=== PATIENT | female | born 1955 | race Caucasian/White ===

== ENCOUNTER 2021-09-25 12:34 | Outpatient (CLI) | payer MEDICARE, MEDICAID, SELFPAY ==
--- NOTE | ~2021-09-25 | US_ITS ---
EXAMINATION: US thyroid EXAM DATE: 09/25/2021 13:34 INDICATION: Graves Disease. TECHNIQUE: Multiple grayscale and Doppler images of the thyroid were obtained (by a technologist who performed the scan) and subsequently reviewed. Individual nodules and recommendations may be reporte d in accordance with TI-RADS system as designated by the 2017 ACR White Paper TI-RADS committee. The re is no prior study for comparison. FINDINGS: The left thyroid lobe measures 4.5 x 2.2 x 2.0 cm, mildly enlarged. Mildly heterogeneous and diffusel y hypervascular parenchyma. The right thyroidectomy bed is unremarkable, no focal masses or internal jugular chain lymphadenopathy. Thyroid Isthmus measures 1 cm in thickness. IMPRESSION: Enlarged hypervascular left thyroid lobe. Reviewed, dictated and finalized at location B. OPERATOR
== END 2021-09-25 12:35 | disposition home or self-care (01) ==
LOC: CHSIMG 12:41
PROVIDERS: PCP Family Medicine
DX: E05.90 Thyrotoxicosis, unspecified without thyrotoxic crisis or storm (principal)
CPT/HCPCS: 76536

== ENCOUNTER 2024-02-03 12:00 | Outpatient (CLI) | payer MEDICARE, MEDICAID, SELFPAY ==
--- NOTE | ~2024-02-03 | US_ITS ---
US thyroid INDICATION: Follow-up thyroid cancer TECHNIQUE: Real-time sonographic images of the thyroid gland were obtained. COMPARISON: Ultrasound dated 09/25/2021 FINDINGS: The right thyroid lobe is surgically absent. There are multiple small left thyroid nodules, largest measuring 4 mm which is solid, hypoechoic, wider than tall with smooth margins and no international first officer al echogenic foci, TR 4. IMPRESSION: 1. Multiple small left thyroid nodules, likely benign. Status post right thyroidectomy. Reviewed, dictated and finalized at location L. IMPRESSION: 1. Multiple small left thyroid nodules, likely benign. Status post right thyro idectomy.
== END 2024-02-03 12:01 | disposition home or self-care (01) ==
LOC: CHSIMG 12:05
PROVIDERS: PCP Family Medicine
DX: C73 Malignant neoplasm of thyroid gland (principal); E04.2 Nontoxic multinodular goiter; Z98.890 Other specified postprocedural states
CPT/HCPCS: 76536

== ENCOUNTER 2025-01-21 12:27 | Outpatient (CLI) | payer MEDICARE, MEDICAID, SELFPAY ==
--- NOTE | ~2025-01-21 | US_ITS ---
EXAMINATION: US thyroid DATE: 01/21/2025 12:53 INDICATION: Malignant neoplasm of thyroid gland. TECHNIQUE: Multiple ultrasound images of the thyroid were obtained. 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 The left thyroid lobe measures 3.3 x 1.4 x 2.0 cm. There is hetero geneous echogenicity in the left thyroid lobe. No discrete nodule. Vascularity is normal. IMPRESSION: 1. Right hemithyroidectomy. Reviewed, dictated and finalized at location L. IMPRESSION: 1. Right hemithyroidectomy.
--- OUTSIDE RECORDS SUMMARY | 2025-01-21 12:38 | XMS_ITS | Encounter Summary ---
Author Organization [facility] Healthcare Address [address] [place] [address] Care Team Providers Care Clod Puller Name Role Phone Joshua Law MD Primary Care Provider [phone] UAnuj esteban MD Unavailable [phone] Joshua Law MD Primary Care Provider [phone] UAnuj esteban MD Unavailable [phone] Encounter Details Date Type Department Care Team (Late st Contact Info) Description 08/16/2022 Telephone [facility] Physical Medicine and Rehabilitation [id number] [place] [address] Martha Couch, HVAC SERVICE TECHNICIAN Social History Tobacco Use Types Packs/Day Years Used Date Smoking Tobacco: Former Cigarettes Smokeless Tobacco: Never Alcohol Use Standard Drinks/Week Comments Yes 0 (1 standard drink = 0.6 oz pur e alcohol) social - 1-2/month Humiliation, Afraid, Rape, and Kick questionnair e Answer Date Recorded Within the last year, have y ou been afraid of your partner or ex-partner? No 08/19/2022 Within the last year, have y ou been humiliated or emotionally abused in other ways by your partner or ex-partner? No Within the last year, have y ou been kicked, hit, slapped, or otherwise physically hurt by your partner or ex-partner? No 08/19/2022 Within the last year, have y ou been raped or forced to have any kind of sexual activity by your partner or ex-partner? No 08/19/2022 AUDIT-C Answer Date Recorded Q1: How often do you have a drink containing alc ohol? Monthly or less 08/19/2022 Q2: How many drinks containi ng alcohol do you have on a typical day when you are drinking? 1 or 2 08/19/2022 Q3: How often do you have si x or more drinks on one occasion? Never 08/19/2022 Overall Financial Resource Strain (CARDIA) Answe r Date Recorded How hard is it for you to pa y for the very basics like food, housing, medical care, and heating? Not very hard 08/19/2022 PHQ-2 Answer Date Recorded PHQ-2 Total Score (If total score is 3 or more points, staff should administer the PHQ-9) 0 08/19/2022 [facility] [place] [facility] Occup[facility] ional [facility] - Occupational Stress Questionnaire Answer Date Recorded Do you feel stress - tense, restless, nervous, or anxious, or unable to sleep at night because your mind is troubled all the time - these days? Not at all 08/19/2022 Hunger Vital Sign Answer Date Recorded Within the past 12 months, y ou worried that your food would run out before you got the money to buy more. Never true 08/19/20 22 Within the past 12 months, t he food you bought just didn't last and you didn't have money to get more. Never true 08/19/2022 PRAPARE - Transportation Answer Date Re corded In the past 12 months, has l ack of transportation kept you from medical appointments or from getting medications? No 08/10 In the past 12 months, has l ack of transportation kept you from meetings, work, or from getting things needed for daily living? No 08/19/2022 Housing Stability Vital Sign Answer Terry e Recorded In the last 12 months, was t here a time when you were not able to pay the mortgage or rent on time? No 08/19/2022 In the last 12 months, how many places have you lived? 1 08/19/2022 In the last 12 months, was t here a time when you did not have a steady place to sleep or slept in a care home (including now)? No 08/19/2022 Comments No Sex and Gender Information Value Date Recorded Sex Assigned at Not on file Legal Sex Female 9:11 AM REMEDIATION CONSULTANT Gender Identity Not on file Sexual Orientation Not on file documented as of this encounter Last Filed Vital Signs Vital Sign Reading Time Taken Comments Blood Pressure - - Pulse - - Temperature - - Respiratory Rate - - Oxygen Saturation - - Inhaled Oxygen Concentration - - Weight 61.7 kg (136 lb) 08/16/2022 10:54 AM CDT Height 160 cm (5' 3 ) 08/16/2022 10:54 AM CDT Body Mass Index 24.09 08/16/2022 10:54 AM CDT documented in this encounter Functional Status * Audit-C Score Answer Date of Assessment Author 1 08/19/2022 10:16 AM Sandi Gillespie MSW * Intimate Partner Violence Question Answer Date of Assessment Author Within the last year, have y ou been humiliated or emotionally abused in other ways by your partner or ex-partner? No 08/19/2022 10:16 AM Natalie Gillespie MSW Within the last year, have y ou been afraid of your partner or ex-partner? No 08/19/2022 10:16 AM Tanesha Gillespie MSW Within the last year, have y ou been raped or forced to have any kind of sexual activity by your partner or ex-partner? No 08/19/2022 10:16 AM Sandi Gillespie MSW Within the last year, have y ou been kicked, hit, slapped, or otherwise physically hurt by your partner or ex-partner? No 08/19/2022 10:16 AM Sandi Gillespie MSW * Question Answer Date of Assessment Author Q1: How often do you have a drink containing alcohol? Monthly or less 08/19/2022 10:16 AM Tanesha Gillespie MSW Q2: How many drinks containing alcohol do you have on a typical day when you are drinking? 1 or 2 08/19/2022 10:16 AM Tanesha Gillespie MSW Q3: How often do you have six or more drinks on one occasion? Never 08/19/2022 10:16 AM Tanesha Gillespie, CELL LINER * Over the past 2 weeks, how often have you been bothered by any of the following problems? Question Answer Date of Assessment Author Patient Health Questionnaire -2 Score 0 08/19/2022 10:13 AM Tanesha Gillespie, CELL LINER * Over the past 2 weeks, how often have you been bothered by any of the following problems? Question Answer Date of Assessment Author Little interest or pleasure in doing things Not at all 08/19/2022 10:13 AM Tanesha Gillespie, CELL LINER Feeling down, depressed, or hopeless Not at all 08/19/2022 10:13 AM Tanesha Gillespie, CELL LINER Trouble falling or staying asleep, or sleeping too much Not at all 08/19/2022 10:13 AM Tanesha Gillespie, CELL LINER Feeling tired or having little energy Not at all 08/19/2022 10:13 AM Tanesha Gillespie, CELL LINER Poor appetite or overeating Not at all 08/19/2022 10 :13 AM Tanesha Gillespie, CELL LINER Feeling bad about yourself - or that you are a failure or have let yourself or your family down Not at all 08/19/2022 10:13 AM Tanesha Gillespie, CELL LINER Trouble concentrating on things, such as reading the newspaper or watching television Not at all 08/19/2022 10:13 AM Tanesha Gillespie, CELL LINER Moving or speaking so slowly that other people could have noticed? Or the opposite - being so fidgety or restless that you have been moving around a lot more than usual. Not at all 08/19/2022 10:13 AM Tanesha Gillespie MSW Thoughts that you would be better off or hurting yourself in some way Not at all 08/19/2022 10:13 AM Tanesha Gillespie, CELL LINER Patient Health Questionnaire-9 Score 0 08/19/2022 10:13 AM Tanesha Gillespie MSW documented as of this encounter Miscellaneous Notes * Pre-Admission Screening - Martha Couch SLP - 08/16/2022 11:04 AM CDT [facility] Physical Medicine and Rehabilitation Preadmission Screening Reason for Consult: Lisa Ellington is a 66 y.o. female with a medical diagnosis of Leukemia and Rehab Diagnosis: New onset Leukemia - debility; deconditioning whose probable impairment code for inpatient rehabilitation is: Impairment Code Group: Debility The following information was gathered for consideration and maintenance in the medical record to substantiate medical necessity for IRF level of care. Patient is currently at [facility] . The patient is being referred and recommended by Dr. Grubbs to be assessed both medically and functionally in regard to their premorbid functional capacity to determine whether they can benefit from a rehabilitation level of care offered by our facility. The following information is regarding the medical complexity and clinical risk factors that need to be considered for the appropriate management of the patient's care and recovery. RECOMMENDATIONS / PLAN: Goals for admission:to resolve all medical issues to optimal level and to improve patients overall functional independence to a Mod Independent level overall for self cares, mobility and transfers with least restrictive device Likelihood of reaching these goals:Very Good Medical Prognosis: Medical prognosis appears good due to ongoing medical issues and existing comorbidities Functional Prognosis: Functional prognosis appears good for patient to recover to a Mod Independentlevel overall for self cares, mobility and transfers with least restrictive device Therapies required to achieve goals:The patient will benefit from integrated coordination of care from the following interdisciplinary services: Medical Supervision, 24 hours Rehabilitation Nursing, Physical Therapy, Occupational Therapy, Case Management, Social Work Expected level of improvement is: very good Expected level of improvement at discharge is: modified independent Strengths for achieving goals: Strengths: Able to tolerate intensive inpatient rehab program, Good family/social support, Motivated Barriers to achieving goals: Barriers: Comorbidities (pain and ongoing medical issues) Expected length of stay: Estimated Length of Stay: 14 days When medically stable, anticipated disposition: Anticipated destination post discharge from inpatient rehab: home with caregiver Information regarding the rehab process including risks/benefits and financial issues were discussed with the patient and/or family and they have agreed to accept rehabilitation risks and benefits. Payor Source: Primary: Medicare A&B Secondary:Policy number: [id number] Case discussed with Dr. Luisa Cain on 08/14/22 @ 1400. Appropriateness for admission to the Inpatient Rehab Facility: yes The Pre-admission screen is an assessment of the patient's medical and functional status and has been reviewed by a rehab physician. It has been determined by the rehab physician that this patient will benefit from a comprehensive inpatient rehab admission to meet the identified goals and manage ongoing medical issues. The physician will provide documentation that supports an inpatient rehab admission including real and potential complications for which the patient is at risk with a plan to manage and avoid those risks HISTORY: Past Medical History: Past Medical History: Diagnosis Date Sleep apnea pt uses CPAP machine nightly Past Surgical History: Past Surgical History: Procedure Laterality Date TUBAL LIGATION 1984 Social History: Social History Tobacco Use Smoking status: Every Day Packs/day: 0.50 Types: Cigarettes Smokeless tobacco: Never Substance and Sexual Activity Drug use: Not Currently Sexual activity: None Alcohol Use: Not on file Patient's Preferred Language: Bots[place] Cultural Requests During Hospitalization: none conveyed Acute Conditions/Co-morbidities requiring Acute Rehab: Other (comment), Uncontrolled pain, Acute renal failure, Increased WBC (Leukocytosis: Bicytopenia:Tumor lysis syndrome: hypothyroidism, bilateral leg pain, PRUDENCE) HPI: 07/13/22: BMT Hospitalist History & Physical Chief Complaint: Patient is a 66 y.o. female with chief complaint of leukocytosis. Subjective HPI: Patient is a 66 year old male with history of hypothyroidism and 20 pack year smoking history who presents with bilateral resting leg pain & rash and was found to have new leukocytosis w/ peripheral circulating blasts concerning for new leukemia. Patient reports she history suspicious for baseline exertional claudication, which she states has been ongoing for years. She states it feels like muscle cramps in both her legs after walking variable distances, which improves with rest. She reports in the past 4 days, she's had progressive increasing bilateral leg pain and developed a red rash along posterior aspect of her legs. Patient reports pain is present at rest now and is uanble to ambulate. At OSH, labs notable for WBC 620.4 (55% blasts, 39% lymphocytes, 5% monocytes, 6% neutrophils), hgb9.9, plt 21, Uric acid 16, Cr 1.59, K 4.7, INR 1.1, PTT 31.8, fibrinogen 205. Patient received 1L NS. 2g hydrea, sllopurinol 200 mg, CTX 2g Cancer Staging No matching staging information was found for the patient. Oncology History No history exists. Assessment/Plan Leukocytosis: Suspected new diagnosis of leukemia. Presents with WBC 600. Per OSH diff, 55% blasts & 39% lymphocytes. Uric acid 16 and Cr 1.59 concerning for TLS. -CXR shows some R sided infiltrates. O2 stable on room air without significant dyspnea symptoms. Ifsigns of increasing hypoxemia or altered mental status, will consider phresis for leukostasis. -Hydrea 2g TID. Close CBC monitoring -IVF, allopurinol, rasburicase 3 mg x1. TLS labs q 8 hrs -BMT CBC, extra slide, PB FC, PB FISH BCR/ABL & PML/STEPHANIE, PB FLT3 PCR -Will need bone marrow biopsy eventually -Will need TTE as well -IR consulted for zeke placement -ECOG ~1 (independent with ADLs, able to participate in setting up large tent & rendevous. Unable to perform strenous activities) Bicytopenia: secondary to leukemia -supportive transfusions -no AC given TCP Tumor lysis syndrome: -as above Acute kidney injury: Cr 1.59 at OSH (unknown baseline) -treatment of TLS as above -renal dose meds, avoid nephrotoxins Bilateral leg pain: Suspect baseline exertional claudication from undiagnosed PVD now progressed toresting claudication from significant leukocytosis impairing blood flow. Former 20 pack year smoking history. -dopplerable R PT/DP & L PT. Unable to palpate foot pulses. -arterial dopplers -treatment of leukocytosis as above -no aspirin given TCP Hypothyroidism: -patient's boyfriend Woo to bring med list -non-urgent thyroid supplementation when home med list available 07/14/22: Critical Care Medicine History and Physical HPI: 66 year old female with pmh of hypothyroidism who presented to the hospital for evaluation of suspected acute leukemia, now presenting to MICU d/t concern for hyperkalemia. Patient presented to OSH with complaint of bilateral lower extremity rash and resting leg pain, found to have WBC 600+ with circulating peripheral blasts c/f leukemia. Started on Hydrea and Allopurinol at OSH as well as treated with Rasburicase for elevated uric acid level and transferred to BMT floor for heme/onc eval. On arrival to floor patient with slight PRUDENCE and elevated potassium but able to be temporized. Overnight BMP noted to have potassium of >10 with repeat WBK 5.6. Received hyperkalemia protocol at that poi nt and rechecked in 4 hours with potassium still reading >10 but this time WBK 9.8. Renal consulted and she was transferred to ICU for initiation of emergent dialysis. On arrival to MICU VSS, EKG with no peaked T waves, QRS widening or sine wave pattern. Lab notifiedthat they were unable to run WBK due to clotting despite it being in a heparinized syringe. I-stat potassium noted to be 3.8. Renal and BMT agree that this is likely pseudohyperkalemia due to in vitro cell destruction and release of potassium. Medical History Past Medical History: ?? Sleep apnea pt uses CPAP machine nightly #leukocytosis -presented to OSH with WBC 600, now down trending to 352. C/f AML -2gm hydrea TID, allopurinol -continue hydration with IVF -echo pending -peripheral flow pending -s/p rasburicase -TLS labs Q8 #hyperkalemia -due high viscosity and leukocytosis lab unable to run accurate labs off BMP. K on BMP >10 and on same blood from POC 3.8. Patient shows no signs of hyperkalemia and no EKG changes. -trend POC potassium along with BMP -renal following and agree with holding off on interventions -BMT agrees with plan #TLS -serial labs -IVF's #hypothyroidism -hx of unclear if being treated. SO to bring med list 07/15/22: NEPHROLOGY CONSULT SUBSEQUENT VISIT ASSESSMENT AND PLAN Pseudohyperkalemia - in the setting of new likely diagnosis of leukemia with WBC of >350k (from 600K on OSH labs) - EKG without obvious changes - possible tumor lysis syndrome vs pseudohyperkalemia from increased fragility of leukocytes to mechanical stress, releasing potassium as a result - POC K today 3.6 - continue to trend bmp - avoid all potassium supplementation, NSAIDS, ACEI/ARB/ spironolactone Leukostasis vs Nonoliguric PRUDENCE - resolving - baseline creatinine unknown but suspect around 0.6-0.8mg/dl (2018 Cr of 0.51mg/dl), peaked at 1.56mg/dl at OSH (07/12/2022), now down to 0.8mg/dl - possible TLS as noted above, likely prerenal from reduce oral intake given improvement with IVF - Could also be due to high WBC load which can precipitate within renal tubules causing PRUDENCE - c/w IVF - s/p rasburicase 07/13 - On allopurinol 100 mg qd - continue to trend labs Hyponatremia (resolved) - serum osmolality of 295, with normal kidney function and blood glucose - Na today 132 Anemia - hgb 8.9 - no indication for SELINA at this time - transfuse for hgb < 7.0 07/26/22: Critical Care Medicine History and Physical Subjective HPI: 66 year old female with pmh of hypothyroidism who presented to the hospital on 07/13 with a WBC 600 newly diagnosed with PH+ B ALL, previously admitted to the ICU for pseudohyperkalemia with a potassium of 9.8, repeat WBKs were WNL. Treated with hydrea 07/13-07/19 and received rasburicase x1 for TLS. 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 Started Dasatinib and Dexamethasone 07/19. Today she presented to the ICU for increased work of breathing and new oxygen requirements of 4L NC. However prior to transfer to the ICU a platelets transfusion was started on the floor, at her 15 minute vital check she was noted to be hypotension and started on pressors. On arrival to the ICU patient was profoundly hypotensive despite multiple push dose pressors and noted to have new flushed skin involving chest and neck. Platelet transfusion was stopped. Platelet transfusion stopped. Patient started on levophed, vasopressin and epi. Received 2L fluid bolus. Started Gent, meropenem and Linezolid. Patient intubated for hypoxia. Received methylpred, benadryl, and pepcid with c/f platelet reaction.S/p intubation patient developed narrow complex tachycardia with HR 190-200s and cardioverted x1 and converted to Afib with RVR. Received amio bolus x2 and amio gtt and converted to NSR. Principal Problem: Acute nonlymphocytic leukemia (AML) (CMS/HCC) ([facility]) Active Problems: ALL (acute lymphocytic leukemia) (CMS/[facility]) ([facility]) Assessment/Plan No new Assessment & Plan notes have been filed under this hospital service since the last note was generated. Service: Critical Care #Septic Shock Likely 2/2 infection, transfusion reaction, c diff colitis. Lactate peaked at 7.5 now down trendingReceived 2L IVF bolus -Bld Cx, UA and Fungal Cx pending -Started on Lindsay, Flagly, Linezolid, per tube vancomycin and Gent x1. -Echo pending -CT CAP with contrast pending -Blood Bank/lab medicine notified up possible transfusion reaction. Work up pending -Epi weaned off, remains on levo and vasopressin. -1L IV fluid bolus now -Consider stress dose steroid if pressors requirements don't improve. #Acute Hypoxic Respiratory Failure Became acutely hypoxic with O2 requirement of 4L on 07/26 early AM with tmax 37.8. Concern that dasatinib can cause pleural effusions - Cxr with pleural effusion (small) and edema vs pna. - Giving lasix 40mg IV x 1 prior to ICU transfer. - May need to change TKIs as dasatinib can cause pleural effusions. -Intubated 07/26. -Trend ABG, daily CXR, -CT Chest pending #Elevated Trop -likely 2/2 demand ischemia. Trend Trop repeat EKG this PM #Afib with RVR -new onset today, likely 2/2 sepsis S/p cardioversion and started amio. Received amio bolus x2 converted to normal sinus and later withepisode of bradycardia and amio gtt stopped. 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 Presents with WBC 600. No symptoms of leukostasis. Peripheral smear demonstrated large cells with high nuclear- cytoplasmic ratio, scant cytoplasm and finechromatin consistent with blasts, also many lymphocytes, and some smudge cells. -Hydrea 2g TID (07/13-07/14)-> de-escalate to 1g TID (07/15-07/18), last dose was on 07/19. -IVF, allopurinol, s/p rasburicase 3 mg x1 for TLS. -PB flow: noted to have an aberrant immunophenotype, but overall findings consistent with B-lymphoblastic leukemia/lymphoma. Positive for CD34, CD10, CD19, CD20, CD123, cDC79a, CD22, TdT, CD200 and HLA-DR - peripheral blood with FISH positive for BCR ABL: with typical BCR/ABL1 rearrangement in 41.5% andatypical BCR/ABL1 rearrangement in 55% with an extra fusion of chromosome 22. 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 Cytogenics show atypical BCR/ABL1 rearrangement with extra derivative 22fusion in 89.5% and typical BCR/ABL1 rearrangement in 7.5% -p210 PCR with 7.45% -TTE with EF of 66% no diastolic dysfunction, mild to moderate MR and dilated IVC -initially consented to clinical trial [id number] (hyperCVAD vs. Blinatumomab); however not a candidatedue to >5 days of hydrea - Started on Dexamethasone and Dastainib off study. Dasatinib is day 1-22 and dexamethasone is days1-7. She will receive IT MTX on 08/02 (day 15), and Bone marrow biopsy on D15. -07/26 Dastainib held d/t septic shock #Cdif + on 07/26, start dificid x 10 days. Changed to IV flagyl and per tube vancomycin 2/[address] CAP pending #Melena: 07/21 w/ episode of melena in the setting of plt of 1 and high dose steroids. Pt HDS. -IV PPI BID, amicar, transfuse hg >8 and plt >20, q8 CBC - 07/22 no further episodes of melena; DC'd PPI as this inhibits dasatinib absorption -Dasatinib held and restarted ppi in setting of shock #Pancytopenia: secondary to leukemia/therapy -supportive transfusions as needed #Hyperkalemia -pseudohyperkalemia 2/2 leukocytosis -no changes on EKG; POC potassium WNL -resolved #Bilateral leg pain: Suspect baseline exertional claudication from undiagnosed PVD now progressed to resting claudication from significant leukocytosis impairing blood flow. Former 20 pack year smoking history. -dopplerable R PT/DP & L PT. Unable to palpate foot pulses. -arterial dopplers with severe Pad on right and left with arterial insufficiency bilaterally at thelevel of the aorto-iliac and common femoral arteries -treatment of leukocytosis as above -no aspirin given TCP #Hypothyroidism (resolved) -patient was prescribed thyroid medication by her PCP then evaluated by an icebox man and taken off of it. Acute kidney injury (resolved): Cr 1.59 at OSH (unknown baseline) - returned to baseline 0.7 Anxiety Depression - hold sertraline on 07/26 while on linezolid #Hypertension Hold Amlodipine dose reduced to 5mg 07/26/22: MICU Attending Admit Note A&P: 1. Acute hypoxemic respiratory failure. Continue lung protective ventilation, wean FiO2 as tolerated. We will check CT chest/abdomen/pelvis for further evaluation, suspect pneumonia is possible source. Continue broad-spectrum antibiotics. 2. Shock. Unclear etiology, but suspect sepsis. A transfusion reaction is possible, although her degree of shock and is refractory nature to multiple therapies would suggest another etiology. We willcontinue broad-spectrum antibiotics, have obtained cultures, and will utilize vasopressors for map goal greater than 65. Check echocardiogram. 3. C diff. continue p.o. vancomycin and IV Flagyl. We will check CT abdomen/pelvis. 4. Pancytopenia. Transfuse per protocol. Transfusion Medicine consulted given concern for reaction to platelet transfusion. She received IV Benadryl, IV Pepcid, and IV corticosteroids for possible transfusion reaction in addition to hemodynamic support. 5. Melena. One previous episode of melena, will place on PPI, monitor hemogram 6. V-tach. Episode of V-tach after intubation status post amiodarone bolus and defibrillation 7. AFib with RVR. Status post amiodarone bolus and infusion, now stopped due to bradycardia. Patient went back into a sinus rhythm 8. ALL. BMT c/s 9. Troponinemia. Likely secondary to shock, trend EKG and troponins. 10. DVT prophylaxis contraindicated. 11. Access: Right IJ CVC, right PICC, left radial A-line 12. Full Code 08/16/22: Discharge Summary Hospital Problems/Diagnoses: Principal Problem: ALL (acute lymphocytic leukemia) ([facility]) ([facility]) Active Problems: Acute nonlymphocytic leukemia (AML) ([facility]) ([facility] Septic shock ([facility]) ([facility]) Acute respiratory failure with hypoxia ([facility]) ([facility]) Elevated troponin Atrial fibrillation ([facility]) ([facility]) C. difficile diarrhea Melena Pancytopenia ([facility]) Pain in both lower extremities Hyperkalemia PRUDENCE (acute kidney injury) ([facility]) ([facility]) Hypertension Elevated LFTs Depression Goals of care, counseling/discussion Transfusion reaction Resolved Problems: No resolved hospital problems. DETAILS OF HOSPITAL STAY Presenting Problem/History of Present Illness: Patient is a 66 year old male with history of hypothyroidism and 20 pack year smoking history who presents with bilateral resting leg pain & rash and was found to have new leukocytosis w/ peripheral circulating blasts concerning for new leukemia. Patient reports she history suspicious for baseline exertional claudication, which she states has been ongoing for years. She states it feels like muscle cramps in both her legs after walking variable distances, which improves with rest. She reports in the past 4 days, she's had progressive increasing bilateral leg pain and developed a red rash along posterior aspect of her legs. Patient reports pain is present at rest now and is uanble to ambulate. At OSH, labs notable for WBC 620.4 (55% blasts, 39% lymphocytes, 5% monocytes, 6% neutrophils), hgb9.9, plt 21, Uric acid 16, Cr 1.59, K 4.7, INR 1.1, PTT 31.8, fibrinogen 205. Patient received 1L NS. 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 Presented with WBC 600. No symptoms of leukostasis. 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 Cytogenics show atypical BCR/ABL1 rearrangement with extra derivative 22 fusion in 89.5% and typical BCR/ABL1 rearrangement in 7.5%. p210 PCR with 7.45%. TTE with EF of 66% no diastolic dysfunction, mild to moderate MR and dilated IVC. She was started on 2g TID of Hydrea (07/13) and deescalated to 1g TID on 07/15 and then received 1g on 07/19, then stopped. She required IVF, rasburicase 3mg and allopurinol for an initial uric acid of 16. Allopurinol was discontinued on 07/25. She was started on dexamethasone and dasatinib 44329 off study with C1D1 on 07/19, planned to continue on dasatinib D1-D21 and dexamethasone D1-D7. However, due to an episode of melena and presence of pleural effusions, dasatinib was switched to imatinib on 07/30 and continued through admission and on discharge. She received IT methotrexate on D26 (08/13), delayed due to thrombocytopenia and coagulationdefects which resolved by D26. Melena: On 07/21 Ms. Ellington had an episode of melena in the setting of thrombocytopenia, high dose steroidsand previous episode of epistaxis. She was started on IV PPI BID, Amicar, and transfused platelets temporarily. She had no further episodes of melena and PPI was discontinued to prevent inhibition ofDasatinib absorption. PAD Endorsed symptoms of claudication that started out exertional and progressed to resting, likely from leukocytosis that may have been impairing blood flow. She had arterial dopplers with severe PAD onright and left with arterial insufficiency bilaterally at the level of the aorto-iliac and common femoral arteries. Symptoms improved somewhat with treatment of her ALL. After IT chemotherapy and platelet recover, she was started on ASA 81 and continued on discharge. Anxiety Depression On admission, patient endorsed having episodes of anxiety, she periodically received ativan 0.5mg PO for anxiety. On 07/22 she started demonstrating more consistent symptoms of anxiety and depression and she was started on sertraline 25mg daily, continued on discharge. C diff infection She tested positive on 07/26 in setting of diarrhea, completed PO vancomycin from 07/26 to 08/05 but did not have improvement in symptoms so switched to fidaxomicin and complete 10 day course 08/05 to 08/14 with resolution of diarrhea. Active Issues Requiring Follow-up: ALL management PAD Determine need for sertraline in future Follow up BCR/ABL p190 Discharge Instructions: You were hospitalized for a new diagnosis of a type of serious blood cancer called acute lymphoblastic leukemia (ALL). You were treated with medications against this cancer, including dexamethasone, dasatinib, and imatinib. You also got a lumbar puncture to inject chemotherapy into your spinal fluid to help prevent the cancer from spreading there. You will need to continue taking imatinib 600mg daily to continue fighting the cancer, and you should also take acyclovir 400mg three times daily andfluconazole 400mg daily to help prevent viral and fungal infections. You will see Dr. Almonte in clinic and have a second spinal fluid chemotherapy treatment at that time. We also found that you have narrowed blood vessels to your legs which is causing your leg pain. Youshould take a baby aspirin 81mg daily to help prevent this from worsening. You were found to have a C diff infection causing diarrhea, which we successfully treated with antibiotics. Continue other medications as prescribed on your medication list. INSTRUCTIONS FOR [facility]-INPATIENT REHAB Please draw CBC with diff and CMP twice a week. Fax results to Dr. Almonte at [phone] Change PICC line dressing once a week and flush lumens with NS and Heparin weekly Transfuse 1 unit PRBC for Hgb<8 and 1 unit PLT for PLT<10. All products need to be irradiatedand CMV negative Patient COVID test - Negative Will bring Chemo meds with her Prior to admission, patient was independent with ADLs, Ambulation, Transfers; needed Assist with homemaking, was driving Currently, patient requires Min A for functional mobility, grooming, LE dressing, toileting Due to a significant decline in functional independence, patient is now referred for acute inpatient rehab program. Date of Onset: Date of Onset: 07/13/22 Date Admitted to Acute: Date admitted to acute: 07/13/22 Precautions/Restrictions: Aspiration, Falls [place] Suicide Severity Rating Scale: Allergies: No Known Allergies Code Status: Full Code Vitals: There were no vitals filed for this visit. Current Systems Summary: Height: 160 cm (5' 3 ) Weight: 61.7 kg (136 lb) Diet: Oral Nutrition Supplements Select Supplement: Ensure Plus - Butter Pecan, Ensure Plus - Yo;Quantity (# of cans): 1 can starting at 08/02 1100 Adult Diet Regular: General starting at 07/28 1519 Bladder: Continent Bowel: Continent Date of last BM: 08/16/22 Integumentary: Pressure Ulcer/Pressure Injury 07/23/22 Mid-line Coccyx wound ostomy assessed 08/01/22, will not follow 23 days Pressure Ulcer/Pressure Injury 07/23/22 Right Buttocks wound ostomy assessed 08/01/22, will not follow 23 days Pressure Ulcer/Pressure Injury 07/23/22 Right Gluteal fold (horizontal junction between the thigh and buttock) wound ostomy assessed 08/01/22, will not follow 23 days Cardiopulmonary: Room air Dialysis: N/A Pain: Patient has pain that is controlled on current regimen IVs: PICC (PICC Double Lumen 07/14/22 Non-tunneled Power #1 Purple, #2 Red, Right Basilic;Upper arm33 days) Current meds: Current Facility-Administered Medications on File Prior to Visit Medication Dose Route Frequency Provider Last Rate Last Admin acetaminophen (TYLENOL) tablet 650 mg 650 mg oral Q6H PRN Bhavani Messer NP 650 mg at 08/09/22 1235 acyclovir (ZOVIRAX) tablet 400 mg 400 mg oral TID Frieda Vegas MD 400 mg at 08/16/22 0903 aspirin enteric coated tablet 81 mg 81 mg oral Daily Scott Azar MD PhD 81 mg at 903 diphenhydrAMINE (BENADRYL) tab/cap 25 mg 25 mg feeding tube Q4H PRN Bhavani Messer NP 25 mg at 08/14/22 09 fluconazole (DIFLUCAN) tablet 400 mg 400 mg oral Daily Scott Azar MD PhD 400 mg at 08/15/22 1653 heparin 10 unit/mL flush 20-50 Units 2-5 mL intra-catheter PRN Hannah Villatoro MD 50 Units at 07/18/22 2013 heparin 10 unit/mL flush 50 Units 5 mL intra-catheter BID Hannah Villatoro MD 50 Unitsat 08/15/22 1454 imatinib (GLEEVEC) tablet 600 mg 600 mg oral Daily Kyaw Vila MD 600 mg at 08/16/22 0903 lidocaine (LMX) 4 % cream 1 application 1 application topical QID PRN Hannah Villatoro MD 1 application at 07/25/22 1137 magnesium sulfate 4 g/100 mL in water (premix) 4 g 4 g intravenous Q4H PRN Joe Ohara MD Stopped at 08/12/22 1205 magnesium sulfate 6 g in sodium chloride 0.9% 250 mL IVPB 6 g intravenous Q4H PRN Justus Ohara MD ondansetron (ZOFRAN) injection 4 mg 4 mg intravenous Q6H PRN Joe Ohara MD 4 mg at 08/16/22 1023 oxyCODONE (ROXICODONE) tablet 2.5 mg 2.5 mg oral QID PRN Harriett Frankel MD 2.5 mg at 08/16/[address] (PROTONIX) extended release tablet 40 mg 40 mg oral BID Joe Ohara MD40 mg at 08/16/22 0903 phenylephrine 0.25%-mineral oil 14%-petrolatum 74.9% ointment rectal QID PRN Joe Ohara MD Given at 08/10/22 0833 potassium chloride ER (KLOR-CON) extended release tablet 40 mEq 40 mEq oral Q2H PRN Joe Ohara MD 40 mEq at 08/09/22 0906 prochlorperazine (COMPAZINE) injection 5 mg 5 mg intravenous Q6H PRN Hannah Villatoro MD 5 mg at 08/13/22 1836 sertraline (ZOLOFT) tablet 25 mg 25 mg oral Daily Hananh Villatoro MD 25 mg at 08/16/22 0903 sodium chloride 0.9% flush 5-10 mL 5-10 mL intra-catheter Q12H ANA Hannah Villatoro MD10 mL at 08/16/22 0910 sodium chloride 0.9% flush 5-20 mL 5-20 mL intra-catheter PRN Hannah Villatoro MD 10 mL at 08/04/22 2054 sodium chloride 0.9% infusion 30 mL/hr intravenous Continuous PRN Hannah Villatoro MD 30 mL/hr at 08/07/22 0401 30 mL/hr at 08/07/22 0401 sodium chloride 0.9% IVPB 0-250 mL 0-250 mL intravenous PRN Hannah Villatoro MD Stopped at 08/09/22 0906 sodium chloride 0.9% solution 3-12 mL/hr intra-catheter Continuous Brody Sutton, PhD 3 mL/hr at 07/28/22 1539 3 mL/hr at 07/28/22 1539 sodium phosphate - potassium phosphate (K-PHOS NEUTRAL) tablet 500 mg 500 mg oral Daily PRN Joe Ohara MD Current Outpatient Medications on File Prior to Visit Medication Sig Dispense Refill acyclovir (ZOVIRAX) 400 mg tablet Take 1 tablet (400 mg total) by mouth 3 (three) times a day 90 tablet 0 [START ON 08/17/2022] aspirin 81 mg enteric coated tablet Take 1 tablet (81 mg total) by mouth daily30 tablet 11 fluconazole (DIFLUCAN) 200 mg tablet Take 2 tablets (400 mg total) by mouth daily 60 tablet 1 fluticasone propionate (FLONASE) 50 mcg/actuation nasal spray imatinib (GLEEVEC) 100 mg tablet Take 2 tablets (200 mg total) by mouth daily 60 tablet 3 imatinib (GLEEVEC) 400 mg tablet Take 1 tablet (400 mg total) by mouth daily [address] (PROTONIX) 40 mg EC tablet Take 1 tablet (40 mg total) by mouth 2 (two) times a day60 tablet 11 [START ON 08/17/2022] sertraline (ZOLOFT) 25 mg tablet Take 1 tablet (25 mg total) by mouth daily 30tablet 11 [DISCONTINUED] acyclovir (ZOVIRAX) 400 mg tablet Take 1 tablet (400 mg total) by mouth 3 (three) times a day 90 tablet 0 [DISCONTINUED] aspirin 81 mg enteric coated tablet Take 1 tablet (81 mg total) by mouth daily 30 tablet 11 [DISCONTINUED] fluconazole (DIFLUCAN) 200 mg tablet Take 2 tablets (400 mg total) by mouth daily 60tablet 1 [DISCONTINUED] pantoprazole DR (PROTONIX) 40 mg EC tablet Take 1 tablet (40 mg total) by mouth 2 (two) times a day 60 tablet 11 [DISCONTINUED] sertraline (ZOLOFT) 25 mg tablet Take 1 tablet (25 mg total) by mouth daily 30 tablet 11 Substance abuse history: Lisa Ellington reports that she has been smoking. She has been smoking an average of .5 packs per day. She has never used smokeless tobacco. She reports that she does not currently use drugs. No alcohol history on file. Diagnostic Tests: Recent Results (from the past 72 hour(s)) aPTT Collection Time: 08/13/22 12:13 PM Result Value Ref Range aPTT 29 27 - 37 sec Protime-INR Collection Time: 08/13/22 12:13 PM Result Value Ref Range PT 10.6 9.2 - 13.5 sec INR 1.0 0.9 - 1.2 Flow Leukemia/Lymphoma CSF Collection Time: 08/13/22 1:44 PM Result Value Ref Range Dyson Stain Test Completed Leukemia/Lymphoma Result See separate Surgical Pathology report. Cell count with reflex to differential, CSF Collection Time: 08/13/22 1:44 PM Result Value Ref Range Tube Number, CSF Tube 1 Color, CSF Tennyson (A) Colorless Clarity, CSF Cloudy (A) Clear Xanthochromia, CSF Absent Absent Nucleated cells, CSF 0 0 - 5 /cumm RBC, CSF 1,764 (H) 0 - 0 /cumm Glucose, CSF Collection Time: 08/13/22 1:44 PM Result Value Ref Range Glucose, CSF 67 mg/dL Protein, total, CSF Collection Time: 08/13/22 1:44 PM Result Value Ref Range Protein, CSF 42 5 - 45 mg/dL aPTT Collection Time: 08/14/22 4:59 AM Result Value Ref Range aPTT 28 27 - 37 sec Hepatic function panel Collection Time: 08/14/22 4:59 AM Result Value Ref Range Bilirubin, total 1.1 0.1 - 1.2 mg/dL Bilirubin, direct 0.4 (H) 0.1 - 0.3 mg/dL Protein, pl 5.5 (L) 6.5 - 8.5 g/dL Albumin 3.2 (L) 3.5 - 5.0 g/dL Alk phos 128 40 - 130 Units/L ALT 75 (H) 7 - 45 Units/L AST 26 10 - 45 Units/L Magnesium Collection Time: 08/14/22 4:59 AM Result Value Ref Range Magnesium 1.8 1.4 - 2.5 mg/dL Phosphorus Collection Time: 08/14/22 4:59 AM Result Value Ref Range Phosphorus, pl 3.2 2.3 - 4.5 mg/dL Basic metabolic panel Collection Time: 08/14/22 4:59 AM Result Value Ref Range Sodium 137 135 - 145 mmol/L Potassium, pl 4.0 3.3 - 4.9 mmol/L Chloride 103 97 - 110 mmol/L CO2 24 22 - 32 mmol/L Anion gap 10 2 - 15 mmol/L BUN 6 (L) 8 - 25 mg/dL Creatinine 0.53 (L) 0.60 - 1.10 mg/dL Glucose 110 70 - 199 mg/dL Calcium 7.9 (L) 8.5 - 10.3 mg/dL Calcium, ionized Collection Time: 08/14/22 4:59 AM Result Value Ref Range Calcium, Ionized 4.29 (L) 4.50 - 5.10 mg/dL Lactate dehydrogenase (LD) Collection Time: 08/14/22 4:59 AM Result Value Ref Range Lactate dehydrogenase (LDH) 302 (H) 100 - 250 Units/L CBC without differential Collection Time: 08/14/22 4:59 AM Result Value Ref Range WBC 4.5 3.8 - 9.9 K/cumm Hgb 7.8 (L) 11.9 - 15.5 g/dL Hct 22.7 (L) 35.6 - 45.5 % Plt 62 (L) 150 - 400 K/cumm MPV 10.7 9.1 - 12.3 fL RBC 2.61 (L) 3.90 - 5.20 M/cumm MCV 87.0 81.3 - 96.4 fL MCH 29.9 27.1 - 33.3 pg MCHC 34.4 32.3 - 35.7 g/dL RDW CV 14.4 11.1 - 14.9 % RDW SD 45.0 35.7 - 48.1 fL NRBC abs 0.00 0.00 - 0.01 K/cumm Manual Differential Collection Time: 08/14/22 4:59 AM Result Value Ref Range Differential Manual Cells Counted 115 Neutrophil abs 3.3 1.7 - 6.5 K/cumm Imm gran abs 0.0 0.0 - 0.1 K/cumm Lymphocyte abs 0.8 0.8 - 3.3 K/cumm Monocyte abs 0.3 0.2 - 0.8 K/cumm Eosinophil abs 0.0 0.0 - 0.5 K/cumm Basophil abs 0.0 0.0 - 0.1 K/cumm Neutrophil pct 73.0 % Lymphocyte pct 16.5 % Monocyte pct 7.0 % Eosinophil pct 0.9 % Basophil pct 0.9 % Variant lymphs 1.7 % RBC morphology Present (A) Anisocytosis Slight (A) Microcytes 3-7/HPF (A) Platelet estimate Decreased (A) eGFR Collection Time: 08/14/22 4:59 AM Result Value Ref Range eGFR >90 90 - 130 mL/min/1.73 m2 Prepare RBC: 1 Units Collection Time: 08/14/22 6:36 AM Result Value Ref Range Product code [id number] Unit Number [id number] Product Blood Type APOS Dispense Status PRESUMED TRANSFUSED Type and screen Collection Time: 08/15/22 4:27 AM Result Value Ref Range ABO Rh A Positive Glenn, indirect Negative aPTT Collection Time: 08/15/22 4:27 AM Result Value Ref Range aPTT 28 27 - 37 sec Hepatic function panel Collection Time: 08/15/22 4:27 AM Result Value Ref Range Bilirubin, total 0.9 0.1 - 1.2 mg/dL Bilirubin, direct 0.4 (H) 0.1 - 0.3 mg/dL Protein, pl 5.6 (L) 6.5 - 8.5 g/dL Albumin 3.2 (L) 3.5 - 5.0 g/dL Alk phos 128 40 - 130 Units/L ALT 88 (H) 7 - 45 Units/L AST 38 10 - 45 Units/L Magnesium Collection Time: 08/15/22 4:27 AM Result Value Ref Range Magnesium 1.6 1.4 - 2.5 mg/dL Phosphorus Collection Time: 08/15/22 4:27 AM Result Value Ref Range Phosphorus, pl 3.0 2.3 - 4.5 mg/dL Basic metabolic panel Collection Time: 08/15/22 4:27 AM Result Value Ref Range Sodium 138 135 - 145 mmol/L Potassium, pl 4.0 3.3 - 4.9 mmol/L Chloride 104 97 - 110 mmol/L CO2 23 22 - 32 mmol/L Anion gap 11 2 - 15 mmol/L BUN 7 (L) 8 - 25 mg/dL Creatinine 0.58 (L) 0.60 - 1.10 mg/dL Glucose 89 70 - 199 mg/dL Calcium 8.1 (L) 8.5 - 10.3 mg/dL Calcium, ionized Collection Time: 08/15/22 4:27 AM Result Value Ref Range Calcium, Ionized 4.54 4.50 - 5.10 mg/dL Lactate dehydrogenase (LD) Collection Time: 08/15/22 4:27 AM Result Value Ref Range Lactate dehydrogenase (LDH) 353 (H) 100 - 250 Units/L CBC without differential Collection Time: 08/15/22 4:27 AM Result Value Ref Range WBC 5.0 3.8 - 9.9 K/cumm Hgb 9.3 (L) 11.9 - 15.5 g/dL Hct 27.2 (L) 35.6 - 45.5 % Plt 74 (L) 150 - 400 K/cumm MPV 10.5 9.1 - 12.3 fL RBC 3.14 (L) 3.90 - 5.20 M/cumm MCV 86.6 81.3 - 96.4 fL MCH 29.6 27.1 - 33.3 pg MCHC 34.2 32.3 - 35.7 g/dL RDW CV 14.5 11.1 - 14.9 % RDW SD 44.6 35.7 - 48.1 fL NRBC abs 0.00 0.00 - 0.01 K/cumm Manual Differential Collection Time: 08/15/22 4:27 AM Result Value Ref Range Differential Manual Cells Counted 115 Neutrophil abs 3.5 1.7 - 6.5 K/cumm Imm gran abs 0.0 0.0 - 0.1 K/cumm Lymphocyte abs 1.4 0.8 - 3.3 K/cumm Monocyte abs 0.1 (L) 0.2 - 0.8 K/cumm Eosinophil abs 0.0 0.0 - 0.5 K/cumm Neutrophil pct 69.5 % Lymphocyte pct 27.0 % Monocyte pct 1.7 % Eosinophil pct 0.9 % Variant lymphs 0.9 % RBC morphology Present (A) Anisocytosis Slight (A) Microcytes 3-7/HPF (A) Platelet estimate Decreased (A) eGFR Collection Time: 08/15/22 4:27 AM Result Value Ref Range eGFR >90 90 - 130 mL/min/1.73 m2 COVID-19 Coronavirus RNA Nasopharyngeal Collection Time: 08/15/22 6:07 PM Specimen: Nasopharyngeal Result Value Ref Range COVID-19 RNA Negative Negative aPTT Collection Time: 08/16/22 3:55 AM Result Value Ref Range aPTT 28 27 - 37 sec Hepatic function panel Collection Time: 08/16/22 3:55 AM Result Value Ref Range Bilirubin, total 0.8 0.1 - 1.2 mg/dL Bilirubin, direct 0.3 0.1 - 0.3 mg/dL Protein, pl 5.5 (L) 6.5 - 8.5 g/dL Albumin 3.2 (L) 3.5 - 5.0 g/dL Alk phos 127 40 - 130 Units/L ALT 84 (H) 7 - 45 Units/L AST 36 10 - 45 Units/L Magnesium Collection Time: 08/16/22 3:55 AM Result Value Ref Range Magnesium 1.6 1.4 - 2.5 mg/dL Phosphorus Collection Time: 08/16/22 3:55 AM Result Value Ref Range Phosphorus, pl 3.7 2.3 - 4.5 mg/dL Basic metabolic panel Collection Time: 08/16/22 3:55 AM Result Value Ref Range Sodium 135 135 - 145 mmol/L Potassium, pl 4.1 3.3 - 4.9 mmol/L Chloride 101 97 - 110 mmol/L CO2 25 22 - 32 mmol/L Anion gap 9 2 - 15 mmol/L BUN 8 8 - 25 mg/dL Creatinine 0.58 (L) 0.60 - 1.10 mg/dL Glucose 95 70 - 199 mg/dL Calcium 8.1 (L) 8.5 - 10.3 mg/dL Calcium, ionized Collection Time: 08/16/22 3:55 AM Result Value Ref Range Calcium, Ionized 4.30 (L) 4.50 - 5.10 mg/dL Lactate dehydrogenase (LD) Collection Time: 08/16/22 3:55 AM Result Value Ref Range Lactate dehydrogenase (LDH) 335 (H) 100 - 250 Units/L CBC without differential Collection Time: 08/16/22 3:55 AM Result Value Ref Range WBC 4.1 3.8 - 9.9 K/cumm Hgb 8.9 (L) 11.9 - 15.5 g/dL Hct 26.1 (L) 35.6 - 45.5 % Plt 83 (L) 150 - 400 K/cumm MPV 10.1 9.1 - 12.3 fL RBC 3.00 (L) 3.90 - 5.20 M/cumm MCV 87.0 81.3 - 96.4 fL MCH 29.7 27.1 - 33.3 pg MCHC 34.1 32.3 - 35.7 g/dL RDW CV 14.6 11.1 - 14.9 % RDW SD 45.5 35.7 - 48.1 fL NRBC abs 0.00 0.00 - 0.01 K/cumm Manual Differential Collection Time: 08/16/22 3:55 AM Result Value Ref Range Differential Manual Cells Counted 108 Neutrophil abs 3.2 1.7 - 6.5 K/cumm Imm gran abs 0.0 0.0 - 0.1 K/cumm Lymphocyte abs 0.8 0.8 - 3.3 K/cumm Monocyte abs 0.0 (L) 0.2 - 0.8 K/cumm Basophil abs 0.0 0.0 - 0.1 K/cumm Neutrophil pct 77.8 % Lymphocyte pct 20.4 % Monocyte pct 0.9 % Basophil pct 0.9 % RBC morphology Normal Platelet estimate Decreased (A) eGFR Collection Time: 08/16/22 3:55 AM Result Value Ref Range eGFR >90 90 - 130 mL/min/1.73 m2 Prior Functional Status: Mobility status/Ambulation aid/assistive devices: Transfers: Independent Walking: Independent Stair negotiation: Independent Falls: Has the patient had 2 or more falls in the past year or any fall with injury in the past year?: No Activities of daily living (ADL) status/ Assistive devices used for ADLs: Dressing: Independent Bathing: Independent Toileting: Independent Bladder: Continent Bowel: Continent Domestic Chores: Required assistance Driving: Yes Functional limitations: Hearing: Normal Sensory Vision: Normal Cognition: Intact Communication: Normal Nutrition: Normal Occupation: retired Pre-Hospital Vocational Status: Retired for age Home Setting: One story home Prehospital Lives With: Spouse Exterior Home Access: Ramp Current functional status: ADL: OT Functional Mobility: 08/15/22: Min A toilet transfers; SBA bed mobility (08/16/2022 10:57 AM) OT Self Care: Min A: grooming, LE dressing, and toileting (08/16/2022 10:57 AM) Mobility/Transfers: PT Functional Mobility: 08/14/22: Min A transfers and mobility 20ft WW (08/16/2022 10:57 AM) Cognition/Communication/Swallowing: Conditions requiring acute rehab and risk for complications: Gait dysfunction - risk for falls and further injury, fracture Decreased mobility - Risk for Fall, skin breakdown, further injury, decompensation, muscle flaccidity Balance Issues- Risk for Fall, further injury Treatments needed to address conditions requiring acute rehab: Daily Face to Face oversight by a provider, Intense PT/OT/SP, Access to Aquatics Coordinator physicians, Frequent labs, Frequent Neuro assessment Alternative Level of Care considered and not appropriate due to: Diagnostics, Daily MD oversight, Daily labs, Medication adjustment/oversight, Consult physician oversight, Chemo administration (Oral Chemo) Patient/Caregiver Goals: Patient and Family Goals: to return home with caregiver support at highestlevel to PLOF Cosigned by Luisa Cain MD at 08/16/2022 11:15 AM CDT Associated attestation - Luisa Cain MD - 08/16/2022 11:15 AM CDT Rehab Referral Decision: Approved I have reviewed this patient Pre-admission Screening Information.The patient is medically stable toparticipate in an inpatient rehabilitation program. In my rehabilitation experience and professional judgement, this patient meets medical necessity criteria and requires an inpatient rehabilitation stay to manage current nursing and medical issues. The patient requires supervision by a rehabilitation physician at least three times a week. The patient requires the Interdisciplinary team approach of an inpatient rehabilitation program. This patient can reasonably expect to participate and benefit from the intensive Inpatient rehabilitation program offered at [facility] . documented in this encounter Plan of Treatment Not on file documented as of this encounter Visit Diagnoses Not on filedocumented in this encounter Additional Health Concerns Infection Onset Date Last Indicated Resolved Time C. difficile Comment:Pt completed course of abx solid stools for last 48 hours. 07/26/2022 07/26/2022 08/19/20 22 10:21 AM CDT COVID: Suspected 2022 2022 2022 5:15 AM CDT COVID: Suspected 10/04/2022 10/04/2022 10/04/2022 3:03 AM REMEDIATION CONSULTANT documented as of this encounter Care Teams Clod Puller Relationship Specialty Start Date End Date Joshua Law MD PCP - General Family Medicine 08/04/19 08/18/24 Joshua Law MD [address] [place] [address] PCP - General Family Medicine 08/19/24 Anuj Almonte MD Consulting Physician Medical Oncology 07/22/22 08/18/24 Anuj Almonte MD [address] [facility] [address] IM [employer], , [address] [place] [address] Medical Oncologist/Supervisor [employer] [facility] 08/19/24 documented as of this encounter
--- OUTSIDE RECORDS SUMMARY | 2025-01-21 12:38 | XMS_ITS | Encounter Summary ---
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
--- OUTSIDE RECORDS SUMMARY | 2025-01-21 12:38 | XMS_ITS | Clinical Summary ---
Author Organization [facility] Address [address] [place] [address] Care Team Providers Care Shoemaker Custom Name Role Phone Joshua Law MD Primary Care Provider [phone] Anuj Almonte MD Unavailable [phone] Allergies Active Allergy Reactions Criticality Noted Date Comments Chlorhexidine Gluconate Itching,Rash,Redness Medium Medications daSATinib (SPRYCEL) 100 mg tabletIndications: [place] Chromosome Positive ALL Take 1 tablet (100 mg total) by mouth daily Take with or without food at the same time each day. Swallow whole. Do not break, cut, or crush. 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 Swallow whole. Do not break, cut, or crush. 30 tablet 1 5 Active Active Problems Patient Care Coordination No te Formatting of this note is d ifferent from the original. BMT Inpatient Care Coordination Overview Diagnosis B cell ALL Floor 9800 Treatment Plan Blina + Imatinib Clinical Trial Reason for Admission Blina C2 Transplant/IEC Planning BMT/IEC Plan HLA typing/IDMs 07/18 HLA typing Not a transplant candidate at this time Insurance Approvals/Issues Discharge Planning Anticipated Discharge Date 10/30 pending CRS, neuro tox Patient Education Completed Issue to be Resolved Before Discharge Discharge Disposition Requests Sent to Case Management and/or Medical Assistants SW: PT/OT=SNF Post-Discharge Follow-Up Living Situation/Distance from [facility] (1 hr) Caregiver Friend-Woo Lab/Transfusion Frequency Patient says she can do labs with PCP Venous Access & Care PICC Exchange PICC for Jackie after C2 Blina? Local Oncologist Contact Post-Discharge Office Visit (H30) GLU D3 10/30 - 7 day bag D10 11/06 - 7 day bag D17 11/13 - 7 day bag D24 11/20 - 48 hr bag D26 11/22 - 48 hr bag D28 11/24 - 24 hr bag - Weekend coverage needed D29 11/25 - Disconnect Miscellaneous Notes: Problem Noted Date Diagnosed Date Rash 10/18/2022 Assessment & Plan (10/18/2022 2:21 PM MECHANICAL RESEARCH ENGINEER): Developed around ving as desquamating rash on her inner thighs, low back, buttocks, perineum and also milder patches on her arms, and lower extremities. - Initially appeared to be due to a fungal etiology thus ketoconazole cream was started; but was later thought to be consistent with drug rash, possibly from ponatinib, which per BMT is self limiting. - Resolving slowly at this time, not bothering patient Acute lymphocytic leukemia in remission 09/13/20 22 Hyponatremia 09/03/2022 Assessment & Plan (09/03/2022 3:36 PM CDT): - Na-130, serum OSM-268, UOsm-189, Julianne- <20, FeNa was les sthen 1 % - Pt's looks clinically dehydrated on exam - Will c/w NS @ 100 ml/hr - Monitor I/O strictly, f/u BMP PAD (peripheral artery disease) 09/02/2022 Assessment & Plan (10/19/2022 9:16 AM MECHANICAL RESEARCH ENGINEER): Initially presented on 10/03/2022 for acute bilateral leg pain and was admitted to vascular surgery for concern of limb ischemia. She was started on a heparin gtt and vascular deemed no surgical intervention so she was then transferred to the BMT service on 10/05. Will follow up in clinic in 4 weeks. - Jul Rt ERNA 0.34, Lt ERNA 0.18 - 10/04 CTA Bilateral Iliofemoral runoff shows occluded bilateral external iliac arteries with reconstitution in femoral arteries and runoff into the foot. - Ponatinib is associated with arterial occlusive disease, discontinued in light of concerns for arterial disease. - Continue aspirin 81mg, therapeutic anticoagulation discontinued Assessment & Plan (10/18/2022 2:23 PM MECHANICAL RESEARCH ENGINEER): Initially presented on 10/03/2022 for acute bilateral leg pain and was admitted to vascular surgery for concern of limb ischemia. She was started on a heparin gtt and vascular deemed no surgical intervention so she was then transferred to the BMT service on 10/05. Will follow up in clinic in 4 weeks. - Jul Rt ERNA 0.34, Lt ERNA 0.18 - 10/04 CTA Bilateral Iliofemoral runoff shows occluded bilateral external iliac arteries with reconstitution in femoral arteries and runoff into the foot. - Ponatinib is associated with arterial occlusive disease, discontinued in light of concerns for arterial disease. - Continue aspirin 81mg Assessment & Plan (10/05/2022 8:03 AM MECHANICAL RESEARCH ENGINEER): During her hospital stay during July, she was noted to have bilateral exertional calf pain. ERNA's were preformed at that time which showed Rt AT 0.34/PT 0.04 (R toe pressure was immeasurable), and Left ERNA 0.18 (). CTA show severe multifocal disease with bilateral external iliac stenosis. She was initiated on ASA. Now presents with worsening bilateral calf pain -plan as above -started heparin gtt - D/C Heparin Assessment & Plan (09/02/2022 7:36 PM CDT): - c/w Aspirin QT prolongation 09/02/2022 Assessment & Plan (09/02/2022 7:38 PM CDT): - Pt has hx of PAF, Vtach (s/p defibrillation) and prolonged Qtc from previous admission - Plan to avoid meds that prolong QTc - Repeat Mg testing, plan to keep Mg > 2.0 & K > 4.0 Transaminitis 09/02/2022 Assessment & Plan (09/02/2022 7:41 PM CDT): - AST was 46 on admission while ALT and Tbil were WNL - Plan to monitor CMP and f/u abdominal uls - Pt has hx of shock liver during previous admission Anxiety 09/02/2022 Assessment & Plan (09/02/2022 7:48 PM CDT): - On Sertraline 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 During the transfusion, patient became hypotensive, SOB, hypoxemic. Transferred to MICU, intubated, required three pressors. Now extubated, on low-dose levo. No e/o hemolytic reaction -Probable severe allergic reaction per Lab Medicine -consider benadryl, tylenol, careful monitoring during and after subsequent transfusions HFrEF (heart failure with reduced ejection fract ion) 07/27/2022 Assessment & Plan (10/04/2022 5:57 AM MECHANICAL RESEARCH ENGINEER): TTE 07/2022: LVEF 47% with grade I diastolic dysfunction, estimated PASP 42. Hx provoked Afib and Vtach during previous admits. Not on meds at home -closely watch fluid status -strict I/O -BP control as elsewhere Assessment & Plan (09/02/2022 7:40 PM CDT): - Trop was elevated during previous admission, nidered at 550 on 07/26, currently is 11 on admission on 09/02 - TTE done on 07/26 was remarkable for LVEF 47%. Normal RV size and systolic function. Grade I diastolic dysfunction. Mild TR,estimated PASP 42 mmHg. Mild to moderate MR - has hx Afib and Vtach during previous admission. - EKG on admission was remarkable for LBBB, unchanged from 07/2022 - Plan to monitor respiratory status while on fluids for PRUDENCE Assessment & Plan (07/27/2022 10:46 AM CDT): -likely 2/2 demand ischemia, a-fib, sepsis -downtrended, no further trending indicated -TTE pending Atrial fibrillation 07/27/2022 Assessment & Plan (07/28/2022 9:54 AM CDT): -new onset 07/26, likely 2/2 sepsis S/p cardioversion and started amio. Received amio bolus x2 converted to normal sinus and later with episode of bradycardia and amio gtt stopped. -Currently in SB -K>4, Mg>2 Pancytopenia 07/27/2022 Assessment & Plan (07/28/2022 8:56 AM CDT): secondary to leukemia/therapy -supportive transfusions as needed -goal hgb >7, plts >10 -c/f transfusion reaction 07/26, labs negative but described as probable severe transfusion reaction per Lab Medicine note -premeds with transfusions Hyperkalemia 07/27/2022 Assessment & Plan (07/28/2022 9:55 AM CDT): -WBC 6.0 07/27 AM, Cr rising. 2/2 PRUDENCE, other. S/p insulin/dextrose x2 -serial labs -temporize as indicated -family would want dialysis if indicated -improving Hypertension 07/27/2022 Assessment & Plan (07/27/2022 8:15 AM CDT): Hold Amlodipine with shock Elevated LFTs 07/27/2022 Assessment & Plan (07/28/2022 6:23 AM CDT): 2/2 shock, meds, other. Liver unremarkable on CT CAP 07/26. On 07/27, AST 6369, ALT 4746, t-bili 2.1. No GB dilation on Ct CAP. INR 2.3 -serial labs -improved Depression 07/27/2022 Assessment & Plan (10/19/2022 9:15 AM MECHANICAL RESEARCH ENGINEER): Mood is stable, continue home sertraline 25 mg qday Assessment & Plan (10/18/2022 2:19 PM MECHANICAL RESEARCH ENGINEER): Mood is stable, continue home sertraline 25 mg qday Assessment & Plan (10/04/2022 6:00 AM MECHANICAL RESEARCH ENGINEER): -cont home zoloft Assessment & Plan (07/28/2022 9:56 AM CDT): With anxiety. -restart sertraline, pt off linezolid ALL (acute lymphocytic leukemia) 07/19/2022 Assessment & Plan (10/19/2022 9:15 AM MECHANICAL RESEARCH ENGINEER): Follows with Dr. Almonte in BMT and was previously on Ponatinib and Blinatumab, which have been stopped due to rash -BMT continues to follow and are considering Imatinib in the future if her WBC rises -Continue OI prophylaxis with acyclovir, fluconazole, and bactrim -Outpatient BMT follow-up -Blood counts currently stable with Hgb ~8-9 and normal platelets Assessment & Plan (10/18/2022 2:16 PM MECHANICAL RESEARCH ENGINEER): Follows with Dr. Almonte in BMT and was previously on Ponatinib and Blinatumab, which have been stopped due to rash -BMT continues to follow and are considering Imatinib in the future if her WBC rises -Continue OI prophylaxis with acyclovir, fluconazole, and bactrim -Outpatient BMT follow-up -Blood counts currently stable with Hgb ~9 and normal platelets Assessment & Plan (10/05/2022 7:56 AM MECHANICAL RESEARCH ENGINEER): Patient of Dr. Esparza ([facility] BMT). She is on blinatumomab + ponatinib. She has received one dose of methotrexate so far. To note, during last recent admission patient with severe leukocytosis (16-26), currently 12.6. 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 p210 PCR with 7.45%. - She was started on dexamethasone and dasatinib 50693 off study with C1D1 on 07/19 - She received IT methotrexate on D26 (08/13) - Is currently on Imatinib 600 mg every day as home med - f/u BMT recs Assessment & Plan (07/28/2022 11:00 AM CDT): New diagnosis of leukemia on this admission. Presents with WBC 600. No symptoms of leukostasis. Peripheral smear demonstrated large cells with high nuclear- cytoplasmic ratio, scant cytoplasm and fine chromatin consistent with blasts, also many lymphocytes, and [...] ABL: with typical BCR/ABL1 rearrangement in 41.5% and atypical BCR/ABL1 rearrangement in 55% with an extra [...] dilated IVC -initially consented to clinical trial [id number] (hyperCVAD vs. Blinatumomab); however not a candidate due to >5 days of hydrea - Started on Dexamethasone and Dastainib off study. Dasatinib is day 1-22 and dexamethasone is days 1-7. She will receive IT MTX on 08/02 (day 15), and Bone marrow biopsy on D15. -07/26 Dastainib held d/t septic shock -Vori changed to olive d/t elveated LFTs Acute lymphoblastic leukemia (ALL) not having achieved remission 07/13/2022 Thyroid cancer 08/04/2019 Overview (08/04/2019): Added automatically from request for surgery [id number] Resolved Problems Problem Noted Date Diagnosed Date Resolved Date ALL (acute lymphoid leukemia ) with failed remission 10/27/2022 03/19/2023 Cellulitis 10/18/2022 10/19/2022 Assessment & Plan (10/19/2022 9:15 AM MECHANICAL RESEARCH ENGINEER): Noted to have erythema at her catheter insertion site on 10/11/2022 that appeared different from her desquamating rash on her arms -No overt signs of infection at that time such as fevers, chills -Catheter was removed on 10/14 and s/p Doxycycline 10/11-10/15, s/p vancomycin x1 10/14 -Now resolved Assessment & Plan (10/18/2022 2:19 PM MECHANICAL RESEARCH ENGINEER): Noted to have erythema at her catheter insertion site on 10/11/2022 that appeared different from her desquamating rash on her arms -No overt signs of infection at that time such as fevers, chills -Catheter was removed on 10/14 and s/p Doxycycline 10/11-10/15, s/p vancomycin x1 10/14 -Now resolved Acute encephalopathy 10/18/2022 022 Assessment & Plan (10/19/2022 9:15 AM MECHANICAL RESEARCH ENGINEER): Secondary to delirium with prolonged hospital stay, prior sedating medications, and underlying malignancy - 10/10 Brain MRI W WO contrast ordered: no acute abnormalities demonstrated, microvascular changes appear chronic - Sedating medications have been discontinued - Exam is now improved and she is A&Ox4 this AM - Continue delirium precautions - PT/OT recommending SNF; however, patient and her would like to return home with home health. Plan to discharge home today Assessment & Plan (10/18/2022 2:23 PM MECHANICAL RESEARCH ENGINEER): Secondary to delirium with prolonged hospital stay, prior sedating medications, and underlying malignancy- - 10/10 Brain MRI W WO contrast ordered: no acute abnormalities demonstrated, microvascular changes appear chronic - Sedating medications have been discontinued - Exam is now improved and she is A&Ox4 this AM - Continue delirium precautions - PT/OT recommending SNF; however, patient and her would like to return home with home health. Plan to discharge home tomorrow Severe malnutrition 09/16/2022 03/19/20 23 Diarrhea in adult patient 09/02/2022 Assessment & Plan (09/02/2022 6:56 PM CDT): - Pt p/w c/o emesis and non bloody diarrhea for over 5 days - She was recently discharge in 08/2022 after a complex and lengthy hospital course followed by inpatient rehab. She also has hx of recent CDI for which she completed a 10 day course of Fidoxomicin, (08/05-08/14) - Plan to obtain repeat stool studies including C.Diff - Meanwhile start Fidoxomycin po per primary Oncology team - Can also be likely related to TKI use as well (drug induced) - Can c/w CLD for now for bowel rest - Will defer CT A/P for now given NTP was noted on exam but will obtain abdominal uls instead. Malnutrition 09/02/2022 03/05/2023 Assessment & Plan (09/02/2022 7:41 PM CDT): - f/u RD recs Severe malnutrition 08/16/2022 03/05/20 23 Assessment & Plan (10/19/2022 9:16 AM MECHANICAL RESEARCH ENGINEER): RD consult: started MVI daily, s/p vitamin repletion (thiamine 500mg q8h then 100mg x7 days, 1mg folic acid x 5 days, B6 100mg x 5 days) Assessment & Plan (10/18/2022 2:19 PM MECHANICAL RESEARCH ENGINEER): RD consult: started MVI daily, s/p vitamin repletion (thiamine 500mg q8h then 100mg x7 days, 1mg folic acid x 5 days, B6 100mg x 5 days) Assessment & Plan (10/04/2022 5:58 AM MECHANICAL RESEARCH ENGINEER): 2/2 cancer and chronic diseases -encourage PO intake -consult Nutrition Septic shock 07/27/2022 03/05/2023 Assessment & Plan (07/29/2022 12:40 PM CDT): Likely 2/2 PNA, C diff, other. -Bld Cx, UA and Fungal Cx NGTD -Abx: Vanc PT (07/26-), flagyl (07/26-07/29). S/p thai (07/26-07/28), linezolid (07/26-07/28), Gent x1 07/26. -weaned off vasopressors. Stress dose steroids d/c'd Acute respiratory failure with hypoxia 07/27/2022 03/05/2023 Assessment & Plan (09/02/2022 7:25 PM CDT): - Developed multifocal pneumonia with septic shock during previous admission requiring intubation, currently stable on RA - c/w Duoneb and O2 via NC PRN, plan to keep O2 sat > 92 % Assessment & Plan (07/28/2022 8:52 AM CDT): Became acutely hypoxic with O2 requirement of 4L on 07/26 early AM with tmax 37.8. Concern that dasatinib can cause pleural effusions. Cxr with pleural effusion (small) and edema vs pna. - May need to change TKIs as dasatinib can cause pleural effusions. -Intubated 07/26, extubated 07/28. -wean supplemental O2 as tolerated -CT Chest c/f PNA, edema. Moderate right and small left pleural effusions C. difficile diarrhea 07/27/20222022 Assessment & Plan (07/29/2022 12:42 PM CDT): + on 07/26, start dificid x 10 days. -Abx: IV flagyl (07/26-07/29) and per tube vancomycin (07/26-), changed d/t shock -CT CAP as described Melena 07/27/2022 03/05/2023 Assessment & Plan (07/28/2022 6:25 AM CDT): 07/21 w/ episode of melena in the setting of plt of 1 and high dose steroids. Pt HDS, no further episodes of melena -Dasatinib held and restarted ppi in setting of shock Pain in both lower extremities 07/27/2022 10/18/2022 Assessment & Plan (10/04/2022 6:00 AM MECHANICAL RESEARCH ENGINEER): During her hospital stay during July, she was noted to have bilateral exertional calf pain. ERNA's were preformed at that time which showed Rt AT 0.34/PT 0.04 (R toe pressure was immeasurable), and Left ERNA 0.18 (26). She was started on ASA. On 10/03, she woke up ~6am with lower back pain and left >right foot pain. The pain was located on the top of her foot and calf. Her pain pain was paraspinal. She called her oncology's office who advised her to presented to the ED. -started heparin gtt -MRI spine pending -Onc consult -pain control -Q4 NV checks Assessment & Plan (07/27/2022 8:14 AM CDT): Suspect baseline exertional claudication from undiagnosed PVD now progressed to resting claudication from significant leukocytosis impairing blood flow. Former 20 pack year smoking history. -dopplerable R PT/DP & L PT. Unable to palpate foot pulses. -arterial dopplers with severe Pad on right and left with arterial insufficiency bilaterally at the level of the aorto-iliac and common femoral arteries -treatment of leukocytosis as described -no aspirin given TCP PRUDENCE (acute kidney injury) 07/27/2022 Assessment & Plan (09/02/2022 7:36 PM CDT): - BUN/Cr on presentation was 16/1.25 , bl Cr was 0.6 on 08/22 - f/u UA and urinelytes, FeNa - c/w NS @ 75 ml/hr, monitor strict I/O - f/u CMP, abdominal uls Assessment & Plan (07/29/2022 12:45 PM CDT): Cr 1.59 at OSH, then improved Recent Cr increase 2/2 shock, meds, other. Cr 0.5 on 07/26 -Kindeys unremarkable on 07/26 CT CAP -Cr 1.49 (1.55) this AM -family would want dialysis if indicated Goals of care, counseling/discussion 07/27/2022 03/05/2023 Assessment & Plan (07/27/2022 2:43 PM CDT): Per BMT, cancer is treatable. 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HCC) (Primary Dx) 01/07/2025 Orders Only [facility] [address] [facility] [address] [place] [address] Aster Shi RN 12/06/2024 11:00 AM MECHANICAL RESEARCH ENGINEER Office Visit [facility] [address] [facility] [address] [place] [phone] Anuj Almonte MD 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[facility]) 12/06/2024 10:15 AM MECHANICAL RESEARCH ENGINEER Clinical Support [facility] - Lab Collection [address] [facility] Floor [address] [place] [address] 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[facility]) 12/06/2024 10:00 AM MECHANICAL RESEARCH ENGINEER Lab [facility] [address] [place] [address] [address] [place] [address] 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[facility]) 11/08/2024 Orders Only [facility] Scanning, Provider 11/08/2024 Telephone [facility] [address] [place] [phone] Anuj Almonte MD from Last 3 Months Surgical History Surgery Date Site/Laterality Comments TUBAL LIGATION 11/10/1984 - 11/09/1985 CENTRAL LINE PLACEMENT > 5 YEARS 09/13/2022 N/A CENTRAL LINE PLACEMENT > 5 YEARS 01/28/2023 N/A PORT PLACEMENT CHEST >5 YEARS 05/05/2023 N/A Medical History Medical History Date Comments Sleep apnea pt uses CPAP mac jossie nightly Family History Medical History Relation Name Comments No Known Problems Maternal Grandfather No Known Problems Maternal Grandmother Cancer Mother Heart disease Mother No Known Problems Paternal Grandfather No Known Problems Paternal Grandmother Cancer Sister Relation Name Status Comments Father Maternal Grandfather Maternal Grandmother Mother Paternal Grandfather Paternal Grandmother Sister Social History Tobacco Use Types Packs/Day Years Used Date Smoking Tobacco: Former Cigarettes 0.5 40 1 1 - 2020 Smokeless Tobacco: Never Tobacco Cessation:Counseling Given: Not Answered Alcohol Use Standard Drinks/Week Comments Yes 0 [...] ex-partner? No 08/19/2022 AUDIT-C Answer Date Recorded Frequency of Alcohol Consumption Not on file 01/28/2023 Q2: How many drinks containi ng alcohol do you have on a typical day when you are drinking? Patient does not drink Frequency of Binge Drinking Not on file 01/09 Overall Financial Resource Strain (CARDIA) Answe r Date Recorded How hard is it for you to pa y for the very basics like food, housing, medical care, and heating? Not very hard 08/19/2022 PHQ-2 Answer Date Recorded Patient Health Questionnaire-2 Score 0 08/23/2022 [facility] of Occupat ional Health - Occupational Stress [...] place to sleep or slept in a custodial (including now)? No 08/19/2022 Personal Safety Answer Date Recorded Have you ever been in or are you currently in a harmful physical or emotional relationship or is someone making you feel afraid or unsafe? Denies 06/30/2023 Comments No Sex and Gender Information Value Date Recorded Sex Assigned at Not on file Legal Sex Female 9:11 AM MECHANICAL RESEARCH ENGINEER Gender Identity Not on file Sexual Orientation Not on file Obstetrics History Last Filed Vital Signs Vital Sign Reading Time Taken Comments Blood Pressure 156/74 12/06/2024 10:59 AM MECHANICAL RESEARCH ENGINEER Pulse 61 12/06/2024 10:59 AM MECHANICAL RESEARCH ENGINEER Temperature 36.9 C (98.4 F) 12/06/2024 10:59 AM MECHANICAL RESEARCH ENGINEER Respiratory Rate 20 12/06/2024 10:59 AM MECHANICAL RESEARCH ENGINEER Oxygen Saturation 99% 12/06/2024 10:59 AM MECHANICAL RESEARCH ENGINEER Inhaled Oxygen Concentration - - Weight 51.9 kg (114 lb 6.4 oz) 12/06/2024 11:12 AM MECHANICAL RESEARCH ENGINEER Height 157 cm (5' 1.81 ) 12/06/2024 11:12 AM MECHANICAL RESEARCH ENGINEER Body Mass Index 21.05 12/06/2024 11:12 AM MECHANICAL RESEARCH ENGINEER Plan of Treatment Health Maintenance Due Date Last Done Comments Colon Cancer Screening-Colonoscopy 1955 Hepatitis C Screening 1955 Osteoporosis Screening-Bone Density Scan 1955 DTaP/Tdap/Td Vaccine (1 - Tdap) 1966 Hepatitis B Screening 1973 Pneumococcal vaccine 65+ (1 of 2 - PCV) 1974 Zoster Vaccine (1 of 2) 1974 Well Visit 65+ 2020 Breast Cancer Screening-Mammogram 10/13/2020 019, 10/13/2019 Depression Screening 08/16/2023 08/16/2022, 08/16/20 22 Fall Risk Assessment 06/30/2024 06/30/2023 Influenza Vaccine (#1) 2024 Medical Devices Implanted Type Area Enrollment Services Vice President Device Identifier Shelf Expiration Date Model / Serial / Lot [employer] Excela Low Porfile Power Port 8fr 1.6mm 1 Lumen [id number] - [id number] Implanted:Qty: 1 on 05/05/2023 at [facility] [employer] 12/29/2027 [id number] / / [id number] Procedures Procedure Name Priority Date/Time Associated Diagnosis Comments DIFFERENTIAL AUTO Routine 12/06/2024 10: 01 AM MECHANICAL RESEARCH ENGINEER 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[facility]) CBC WITH AUTO DIFFERENTIAL Routine 12/06/2024 10:01 AM MECHANICAL RESEARCH ENGINEER 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[facility]) EGFR Routine 12/06/2024 10:01 AM MECHANICAL RESEARCH ENGINEER 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[facility]) BCR/ABL P210 QUANTITATIVE, PCR Routine 12/06/2024 10:01 AM MECHANICAL RESEARCH ENGINEER 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[facility]) URIC ACID Routine 12/06/2024 10:01 AM MECHANICAL RESEARCH ENGINEER 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[facility]) COMPREHENSIVE METABOLIC PANEL Routine 12/06/2024 10:01 AM MECHANICAL RESEARCH ENGINEER 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[facility]) LACTATE DEHYDROGENASE Routine 12/06/2024 10:01 AM MECHANICAL RESEARCH ENGINEER 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 [address] Lymphocyte abs 4.5(H) 0.8 - 3.3 K/cumm [facility] Comment:Testing performed by : [facility], [address] [place] [phone] Monocyte abs 0.5 0.2 - 0.8 K/cumm [facility] Comment:Testing performed by : [facility], [address] [place] [phone] Eosinophil abs 0.2 0.0 - 0.5 K/cumm [facility] Comment:Testing performed by : [facility], [address] [place] [phone] Basophil abs 0.1 0.0 - 0.1 K/cumm [facility] Comment:Testing performed by : [facility], [address] [place] [phone] Neutrophil pct 46.9 % [facility] Comment: Interpretive Data Percent cell count reference ranges are not reported, since discordance with absolute values may lead to misinterpretation of CBC data. Current Interpretive Data was last revised on 2018. Testing performed by: [facility], [address] [place] [phone] Lymphocyte pct 45.1 % [facility] Comment: Interpretive Data Percent cell count reference ranges are not reported, since discordance with absolute values may lead to misinterpretation of CBC data. Current Interpretive Data was last revised on 2018. Testing performed by: [facility], [address] [place] [phone] Monocyte pct 5.1 % [facility] Comment: Interpretive Data Percent cell count reference ranges are not reported, since discordance with absolute values may lead to misinterpretation of CBC data. Current Interpretive Data was last revised on 2018. Testing performed by: [facility], [address] [place] [phone] Eosinophil pct 2.4 % [facility] Comment: Interpretive Data Percent cell count reference ranges are not reported, since discordance with absolute values may lead to misinterpretation of CBC data. Current Interpretive Data was last revised on 2018. Testing performed by: [facility], [address] [place] [phone] Basophil pct 0.5 % [facility] Comment: Interpretive Data Percent cell count reference ranges are not reported, since discordance with absolute values may lead to misinterpretation of CBC data. Current Interpretive Data was last revised on 2018. Testing performed by: [facility], [address] [place] [phone] Blood 12/06/2024 10:0 1 AM MECHANICAL RESEARCH ENGINEER 12/06/2024 10:06 AM MECHANICAL RESEARCH ENGINEER us Anuj Almonte MD LAB BLOOD ORDERABLES Final Re sult [facility] [place] [address] * (ABNORMAL) CBC with auto differential (12/06/2024 10:01 AM MECHANICAL RESEARCH ENGINEER) WBC 10.0(H) 3.8 - 9.9 K/cumm Comment:Testing performed by : [facility], [address] [place] [address] Hgb 12.4 11.9 - 15.5 g/dL [facility] Comment:Testing performed by : [facility], [address] [place] [address] Hct 35.7 35.6 - 45.5 % [facility] Comment:Testing performed by : [facility], [address] [place] [address] Plt 235 150 - 400 K/cumm [facility] Comment:Testing performed by : [facility], [address] [place] [address] MPV 6.3(L) 6.8 - 10.4 fL [facility] Comment:Testing performed by : [facility], [address] [place] [address] RBC 3.84(L) 3.90 - 5.20 M/cumm [facility] Comment:Testing performed by : [facility], [address] [place], [place] [phone] MCV 93.1 81.3 - 96.4 fL [facility] Comment:Testing performed by : [facility], [address] [place] [phone] MCH 32.2 27.1 - 33.3 pg [facility] Comment:Testing performed by : [facility], [address] [place] [address] MCHC 34.6 32.3 - 35.7 g/dL [facility] Comment:Testing performed by : [facility], [address] [place] [address] RDW CV 14.2 11.1 - 14.9 % [facility] Comment:Testing performed by : [facility], [address] [place] [address] NRBC abs 0.00 0.00 - 0.01 K/cumm [facility] Comment:Testing performed by : [facility], [address] [place] [phone] Blood 12/06/2024 10:0 1 AM MECHANICAL RESEARCH ENGINEER 12/06/2024 10:06 AM MECHANICAL RESEARCH ENGINEER Anuj Almonte MD LAB BLOOD ORDERABLES Final Re sult [facility] [place] [address] * BCR/ABL p210 Quantitative, PCR (12/06/2024 10:01 AM MECHANICAL RESEARCH ENGINEER) Pathologist [facility] BCR/ABL p210 Not Detected [facility] BCR/ABL p210 Interpretation Not detected: There is no evidence of a major (p210) BCR::ABL1 fusion transcript by quantitative RT-PCR analysis. [facility] BCR/ABL p210 Specimen Blood [facility] BCR/ABL p210 Result Review Final report reviewed by: Anita Santiago MS, MB([facility]) Fall Internship, on 12/07/2024 12:16:23 MECHANICAL RESEARCH ENGINEER. [facility] Comment: Interpretive Data A summary of previous BCR::ABL1 major quantitative RT-PCR results for this patient performed in the [facility] Molecular Diagnostics Lab may be found as a cumulative laboratory report in the Results Review section of the Medical Record. Method: The quantitative BCR::ABL1 assay is performed on the [employer] ([employer]) platform. RNA is extracted, converted to cDNA, and BCR::ABL1 and ABL1 cDNA targets are quantified by real-time PCR amplification. Results are reported as the percentage ratio of BCR::ABL1 fusion transcripts to ABL1 transcripts (BCR::ABL1/ABL1) on the International Scale (Nilson YOON, 2010). A BCR::ABL1 value of 0.1% on the International Scale represents a major molecular response in CML (Kaur S, 2008). The analytical sensitivity of this assay is 0.0032% BCR::ABL1/ABL1. Due to assay non-linearity for the BCR::ABL1 p210 isoform at very high and low concentrations, results greater than 10% (above upper limit of quantification or ULOQ) will be reported as > 10% and results detected at less than 0.0032% (below lower limit of quantification or LLOQ) will be reported as < 0.0032% . Limitations: This test only detects the e13a2 and e14a2 BCR::ABL1 major isoforms. A negative result does not exclude the presence of the e1a2 (p190) BCR::ABL1 minor isoforms. False positive or negative results may occur with unusual BCR::ABL1 isoforms. FDA Comment: This test was developed and its performance characteristics determined by this Molecular Diagnostics Lab. Peripheral blood testing has been cleared by the U.S. Food and Drug Administration (FDA). Alternative specimen types, including extracted RNA or bone marrow aspirates have not been cleared or approved by the U.S. Food and Drug Administration. FDA does not require those modifications to go through premarket FDA review. This test is used for clinical purposes. It should not be regarded as investigational or for research. This laboratory is certified under the Clinical Laboratory Improvement Amendments (CLIA) as qualified to perform high complexity clinical laboratory testing. Literature References: Kaur S, João L, Lui N, et al. Desirable performance characteristics for BCR-ABL measurement on an international reporting scale to allow consistent interpretation of individual patient response and comparison of response rate between clinical trials. Blood 2008;113:5413-6289. Nilson YOON, Giselle P, Liz P, et al. Establishment of the first World Health Organization International Genetic Reference Panel for quantification of BCR-ABL mRNA. Blood 2010;116:n456-285. Responsys BCR-ABL V2 Package Insert [id number], Rev B (September 2016). Xpert BCR-ABL Monitor, [id number], Rev A, March 2011. This test was performed at: [facility], [facility], [facility]#[id number], Karie Ruth, Ph.D., [place], [address], [place] Current interpretive data was last revised 2023. Blood 12/06/2024 10:0 1 AM MECHANICAL RESEARCH ENGINEER 12/06/2024 2:00 PM MECHANICAL RESEARCH ENGINEER Anuj Almonte MD LAB GENETIC TESTING Final Res ult [facility] [place] [address] [facility] * eGFR (12/06/2024 10:01 AM MECHANICAL RESEARCH ENGINEER) eGFR 83 >=60 mL/min/1. 73 m2 Comment: Interpretive Data Reference Interval Normal >/= 90 mL/min/1.73m2 Mildly decreased* 60 - 89 mL/min/1.73m2 Mildly to moderately decreased 45 - 59 mL/min/1.73m2 Moderately to severely decreased 30 - 44 mL/min/1.73m2 Severely decreased 15 - 29 mL/min/1.73m2 Kidney Failure < 15 mL/min/1.73m2 *Relative to young adult level Estimated glomerular filtration rate is determined by the 2020 CKD-EPI equation recommended by the National Kidney Foundation (A Unifying Approach to GFR Estimation: Recommendations of the NKF-ASK Task Force on Reassessing the Inclusion of Race in Diagnosing Kidney Disease, JASN 2020). The CKD-EPI equation should not be used for patients with unstable renal function and has not been validated in children and those over 70. Current interpretive data was last reviewed 2021. Blood 12/06/2024 10:0 1 AM MECHANICAL RESEARCH ENGINEER 12/06/2024 10:14 AM MECHANICAL RESEARCH ENGINEER Anuj Almonte MD LAB BLOOD ORDERABLES Final Re sult Performing Organization Address [facility] [place] [address] * Uric acid (12/06/2024 10:01 AM MECHANICAL RESEARCH ENGINEER) Uric acid 3.6 2.5 - 7.0 mg/dL Blood 12/06/2024 10:0 1 AM MECHANICAL RESEARCH ENGINEER 12/06/2024 10:14 AM MECHANICAL RESEARCH ENGINEER Anuj Almonte MD LAB BLOOD ORDERABLES Final Re sult Performing Organization Address [facility] de Phone Number [facility] [place] [address] * Magnesium (12/06/2024 10:01 AM MECHANICAL RESEARCH ENGINEER) Magnesium 2.2 1.4 - 2.5 mg/dL Blood 12/06/2024 10:0 1 AM MECHANICAL RESEARCH ENGINEER 12/06/2024 10:14 AM MECHANICAL RESEARCH ENGINEER Anuj Almonte MD LAB BLOOD ORDERABLES Final Re sult Performing Organization Address [facility] [place] [address] * (ABNORMAL) Lactate dehydrogenase (LD) (12/06/2024 10:01 AM MECHANICAL RESEARCH ENGINEER) Lactate dehydrogenase (LDH) 251(H) 100 - 250 Units/L Blood 12/06/2024 10:0 1 AM MECHANICAL RESEARCH ENGINEER 12/06/2024 10:14 AM MECHANICAL RESEARCH ENGINEER Anuj Almonte MD LAB BLOOD ORDERABLES Final Re sult Performing Organization Address [facility]/ZIP Co de Phone Number [facility] [place] [address] * Comprehensive metabolic panel (12/06/2024 10:01 AM MECHANICAL RESEARCH ENGINEER) Sodium 138 135 - 145 mmol/L Potassium, pl 4.3 3.3 - 4.9 mmol/L [facility] Chloride 106 97 - 110 mmol/L [facility] CO2 25 22 - 32 mmol/L [facility] Anion gap 7 2 - 15 mmol/L [facility] BUN 14 6 - 25 mg/dL [facility] Creatinine 0.77 0.60 - 1.10 mg/dL [facility] Glucose 103 70 - 199 mg/dL [facility] Comment: Interpretive Data Fasting glucose >/= 126 mg/dl is diagnostic for diabetes. Fasting is defined as no caloric intake for at least 8 hours. Fasting glucose between 100 mg/dl to 125 mg/dl is diagnostic of prediabetes. In a patient with classic symptoms of hyperglycemia or hyperglycemic crisis, a random glucose >/= 200 mg/dl is diagnostic for diabetes. In the absence of unequivocal hyperglycemia, results should be confirmed by repeat testing. The classification and Diagnosis of Diabetes Diabetes Care 202; 46: S19-S40. Current interpretive data was last revised 2022. Calcium 8.9 8.5 - 10.3 mg/dL [facility] Bilirubin, total 0.3 0.1 - 1.2 mg/dL [facility] Protein, pl 6.5 6.5 - 8.5 g/dL [facility] Albumin 4.4 3.5 - 5.0 g/dL [facility] Alk phos 77 40 - 130 Units/L [facility] ALT 13 7 - 45 Units/L [facility] AST 23 10 - 45 Units/L [facility] Blood 12/06/2024 10:0 1 AM MECHANICAL RESEARCH ENGINEER 12/06/2024 10:14 AM MECHANICAL RESEARCH ENGINEER Anuj Almonte MD LAB BLOOD ORDERABLES Final Re sult Performing Organization Address [facility]/ZIP Co de Phone Number [facility] [place] [address] * SCAN - LABS (11/08/2024) us Provider Scanning Edited Result - Final from Last 3 Months Insurance MEDICARE [facility] MEDICARE IDPA Advance Directives For more information, please contact: [phone] * Full Code (Latest Code Status on File) Date Activated Date Inactivated Comments 05/05/2023 9:30 AM 05/06/2023 4:43 AM * Full Code Date Activated Date Inactivated Comments 01/28/2023 9:40 AM 01/29/2023 4:39 AM * Full Code Date Activated Date Inactivated Comments 10/27/2022 12:04 PM 10/30/2022 1:28 PM * Full Code Date Activated Date Inactivated Comments 10/05/2022 3:24 PM 10/19/2022 3:21 PM * Full Code Date Activated Date Inactivated Comments 09/13/2022 11:08 AM 09/20/2022 2:04 PM Care Teams Shoemaker Custom Relationship Specialty Start Date End Date Joshua Law MD [address] [address] PCP - General Family Medicine 08/19/24 Anuj Almonte MD [address] [facility] [address] [employer], , [address] [place] [address] Medical Oncologist/Director Of Rooms Medical Oncology 08/19/24
--- OUTSIDE RECORDS SUMMARY | 2025-01-21 12:38 | XMS_ITS | Clinical Summary ---
Author Organization [facility] Address [address] [place] [address] Care Team Providers Care Fan Blade Truer Name Role Phone Joshua Law MD Primary Care Provider [phone] Allergies No known active allergies Medications metoprolol succinate ER (TOPROL-XL) 25 MG 24 hr tablet Take 25 mg by mouth daily. 07/03/2022 Active HYDROcodone-favian taminophen (NORCO) 5-325 MG tabletIndicatio ns:Acute Pain < 7 Day Supply Take 1-2 tablets by mouth every 6 (six) hours as needed. Indications: Acute Pain < 7 Day Supply 20 tablet 12/07/2022 Active acyclovir (ZOVIRAX) 400 MG tablet 12/12/2022 Active allopurinol (ZYLOPRIM) 100 MG tablet 12/24/2022 Active aspirin EC 81 MG tablet Take 81 mg by mouth daily. 08/22/2022 Active cyclobenzaprine (FLEXERIL) 5 MG tablet Take 5 mg by mouth. 12/16/2022 Active famotidine (PEPCID) 20 MG tablet 12/24/2022 Active fluconazole (DIFLUCAN) 200 MG tablet 12/16/2022 Active gabapentin (NEURONTIN) 300 MG capsule Take 300 mg by mouth 2 (two) times daily. 11/20/2022 Active imatinib (GLEEVEC) 400 MG tablet 12/16/2022 Active sertraline (ZOLOFT) 25 MG tablet 12/24/2022 Active HYDROcodone-favian taminophen (NORCO) 5-325 MG tabletIndicatio ns:Acute Pain < 3 Day Supply Take 1-2 tablets by mouth every 6 (six) hours as needed. Indications: Acute Pain < 3 Day Supply 12 tablet 01/01/2023 Active Encounters Date Type Department Care Team Description 11/08/2024 2:30 PM CREATIVE WRITING ENGLISH PROFESSOR - 11/08/2024 11:59 PM CREATIVE WRITING ENGLISH PROFESSOR Hospital Encounter [place] [address] [place] [address] Anuj Almonte MD Discharge Disposition: Home or Self Care (Routine Discharge) 11/08/2024 2:25 PM CREATIVE WRITING ENGLISH PROFESSOR - 11/08/2024 2:29 PM CREATIVE WRITING ENGLISH PROFESSOR Hospital Encounter [place] [address] [place] [address] Hitesh Birmingham NP Discharge Disposition: Home or Self Care (Routine Discharge) 11/08/2024 Orders Only [place] [address] [place] [address] Anuj Almonte MD 11/08/2024 Orders Only [place] [id number] [place] [address] Hitesh Birmingham NP 11/08/2024 Travel from Last 3 Months Immunizations Name Administration Dates Next Due Fluzone High Dose - >Age 65 (Prefilled Syringe) 10/30/2023(Deferred: Patient Refused) Family History Medical History Relation Comments Lung Cancer Father Cancer Mother RECTAL Cancer Sister UNKNOWN PRIM/ALL OVER Relation Status Comments Father Mother Sister Social History Tobacco Use Types Packs/Day Years Used Date Smoking Tobacco: Never Smokeless Tobacco: Never Alcohol Use Standard Drinks/Week Comments Yes 0 (1 standard drink = 0.6 oz pur e alcohol) rarely Comments No Sex and Gender Information Value Date Recorded Sex Assigned at Not on file Legal Sex Female 5:51 PM CREATIVE WRITING ENGLISH PROFESSOR Gender Identity Not on file Sexual Orientation Not on file Last Filed Vital Signs Vital Sign Reading Time Taken Comments Blood Pressure 128/69 01/01/2023 2:00 PM CREATIVE WRITING ENGLISH PROFESSOR Pulse 88 01/01/2023 12:13 PM CREATIVE WRITING ENGLISH PROFESSOR Temperature 36.1 C (97 F) 01/01/2023 12:13 PM CREATIVE WRITING ENGLISH PROFESSOR Respiratory Rate 18 01/01/2023 12:13 PM CREATIVE WRITING ENGLISH PROFESSOR Oxygen Saturation 100% 01/01/2023 2:00 PM CREATIVE WRITING ENGLISH PROFESSOR Inhaled Oxygen Concentration - - Weight 49 kg (108 lb) 01/01/2023 12:13 PM CREATIVE WRITING ENGLISH PROFESSOR Height 157.5 cm (5' 2 ) 01/01/2023 12:13 PM CREATIVE WRITING ENGLISH PROFESSOR Body Mass Index 19.75 01/01/2023 12:13 PM CREATIVE WRITING ENGLISH PROFESSOR Plan of Treatment Health Maintenance Due Date Last Done Comments Colorectal Cancer Screening Colonoscopy (10 Years) 1955 COVID-19 Vaccine (#1) 1960 Pneumococcal Vaccine: 65+ Ye ars (1 of 2 - PCV) 1961 Hepatitis C 1973 DTaP, Tdap and Td Vaccines ( 1 - Tdap) 1974 Zoster Vaccines (1 of 2) 1974 RSV Immunization or 60+ Years (1 - Risk 60-74 years 1-dose series) 2015 Annual Medicare Wellness Visit 2020 Dexa Scan (General) 2020 Mammogram Screening 10/13/2021 10/13/2019 Influenza Adult (#1) 2024 Meningococcal B Vaccine Aged Out No l onger eligible based on patient's age to complete this topic Meningococcal Vaccine Aged Out No parag guillermo eligible based on patient's age to complete this topic RSV Immunizations Under 20 Months Aged Out No longer eligible based on patient's age to complete this topic Procedures Procedure Name Priority Date/Time Associated Diagnosis Comments URIC ACID BLOOD Routine 11/08/2024 2:43 PM CREATIVE WRITING ENGLISH PROFESSOR Acute lymphoblastic leukemia (ALL) ([facility]) LDH, LACTATE DEHYDROGENASE Routine 11/08/2024 2:43 PM CREATIVE WRITING ENGLISH PROFESSOR Acute lymphoblastic leukemia (ALL) ([facility]) COMPREHENSIVE METABOLIC PANEL Routine 11/08/2024 2:43 PM CREATIVE WRITING ENGLISH PROFESSOR Acute lymphoblastic leukemia (ALL) ([facility]) CBC W/DIFF AUTOMATED Routine 11/08/2024 2:43 PM CREATIVE WRITING ENGLISH PROFESSOR Acute lymphoblastic leukemia (ALL) ([facility]) THYROID STIM HORMONE TSH Routine 11/08/2024 2:43 PM CREATIVE WRITING ENGLISH PROFESSOR Malignant neoplasm of thyroid gland ([facility] HHS/[facility]) THYROXINE, FREE (FT4) Routine 11/08/2024 2:43 PM CREATIVE WRITING ENGLISH PROFESSOR Malignant neoplasm of thyroid gland (CMS/HCC HHS/HCC) MG SCREENING W KARY TALISHA DIGI Routine 10/13/2019 10:49 AM CREATIVE WRITING ENGLISH PROFESSOR Screening mammogram, encounter for from Last 3 Months or Most Recently Relevant to Health Maintenance Results * (ABNORMAL) COMPREHENSIVE METABOLIC PANEL (11/08/2024 2:43 PM CREATIVE WRITING ENGLISH PROFESSOR) SODIUM S/P/B 130(L) 136 - 145 MMOL/L 11/08/2024 3:04 PM [facility] POTASSIUM S/P/B 3.9 3.5 - 5.1 MMOL/L 11/08/2024 3:04 PM [facility] CHLORIDE S/P/B 96(L) 98 - 107 MMOL/L 11/08/2024 3:04 PM [facility] CO2 24.9 21.0 - 32.0 MMOL/L 11/08/2024 3:04 PM [facility] GLUCOSE 97 70 - 99 MG/DL 11/08/2024 3:04 PM [facility] Comment: FASTING GLUCOSE 100 TO 125 MG/DL IS CONSISTENT WITH IMPAIRED FASTING GLUCOSE. FASTING GLUCOSE >125 MG/DL IS CONSISTENT WITH DIABETES. RANDOM GLUCOSE >200 MG/DL WITH HYPERGLYCEMIC SYMPTOMS IS CONSISTENT WITH DIABETES. PER ADA GUIDELINES BUN 9 6 - 24 MG/DL 11/08/2024 3:04 PM [facility] CREATININE S/P/B 0.79 0.55 - 1.02 MG/DL 11/08/2024 3:04 PM [facility] CALCIUM S/P/B 8.4 8.4 - 10.5 MG/DL 11/08/2024 3:04 PM [facility] BILIRUBIN TOTAL S/P/B 0.7 0.2 - 1.0 MG/DL 11/08/2024 3:04 PM [facility] Comment: THIS ASSAY IS NOT RECOMMENDED FOR PATIENTS UNDERGOING TREATMENT WITH ELTROMBOPAG DUE TO THE POTENTIAL FOR FALSELY ELEVATED RESULTS. ALKALINE PHOSPHATASE S/P/B 90 55 - 142 U/L 11/08/2024 3:04 PM [facility] AST 17 15 - 37 U/L 11/08/2024 3:04 PM CREATIVE WRITING ENGLISH PROFESSOR [facility] ALT 20 14 - 59 U/L 11/08/2024 3:04 PM [facility] TOTAL PROTEIN S/P/B 6.7 6.4 - 8.2 G/DL 11/08/2024 3:04 PM CREATIVE WRITING ENGLISH PROFESSOR [facility] ALBUMIN S/P/B 4.0 3.4 - 5.0 G/DL 11/08/2024 3:04 PM [facility] ANION GAP 9.1 5.0 - 15.0 MMOL/L 11/08/2024 3:04 PM [facility] OSMOLALITY (CALC) 269 MOSM/KG 024 3:04 PM [facility] Comment:REFERENCE RANGE NOT ESTABLISHED GFR ESTIMATE 81(L) >89 ML/MIN/1. 73 M2 11/08/2024 3:04 PM [facility] GFR NOTES GFR REFERENCE S: 11/08/2024 3:04 PM [facility] Comment: THE ESTIMATED GFR IS CALCULATED USING THE 2020 CKD-EPI EQUATION. THE FOLLOWING CATEGORIES FOR GRADING RENAL FUNCTION ARE RECOMMENDED BY THE INTERNATIONAL SOCIETY OF NEPHROLOGY (KDIGO 2012 CLINICAL PRACTICE GUIDELINE). G1,NORMAL OR HIGH: >89 ml/min/1.73 m2 G2,MILDLY DECREASED: 60-89 ml/min/1.73 m2 G3A,MILDLY TO MODERATELY DECREASED: 45-59 ml/min/1.73 m2 G3B,MODERATELY TO SEVERELY DECREASED: 30-44 ml/min/1.73 m2 G4,SEVERELY DECREASED: 15-29 ml/min/1.73 m2 G5,KIDNEY FAILURE: <15 ml/min/1.73 m2 11/08/2024 2:43 PM CREATIVE WRITING ENGLISH PROFESSOR Anuj Almonte MD LABORATORY Final Result [facility] [address] [place] [address], * LDH, LACTATE DEHYDROGENASE (11/08/2024 2:43 PM CREATIVE WRITING ENGLISH PROFESSOR) Pathologist [facility] LDH 225 81 - 234 UNITS/L 11/08/2024 3:04 PM CREATIVE WRITING ENGLISH PROFESSOR [facility] 11/08/2024 2:43 PM CREATIVE WRITING ENGLISH PROFESSOR Anuj Almonte MD LABORATORY Final Result [facility] [address] [place] [address], * (ABNORMAL) CBC W/DIFF AUTOMATED (11/08/2024 2:43 PM CREATIVE WRITING ENGLISH PROFESSOR) Pathologist [facility] WBC 9.59 4.00 - 10.80 x10'3/uL 11/08/2024 2:49 PM CREATIVE WRITING ENGLISH PROFESSOR [facility] RBC 3.81(L) 4.10 - 5.40 x10'6/uL 11/08/2024 2:49 PM [facility] HGB 12.4 12.0 - 16.0 G/DL 11/08/2024 2:49 PM [facility] HCT 34.5(L) 36.0 - 47.0 % 11/08/2024 2:49 PM [facility] MCV 90.6 78.0 - 100.0 FL 11/08/2024 2:49 PM [facility] MCH 32.5(H) 27.0 - 31.0 PG 11/08/2024 2:49 PM CREATIVE WRITING ENGLISH PROFESSOR [facility] MCHC 35.9 33.0 - 36.0 G/DL 11/08/2024 2:49 PM [facility] RDW 14.2 11.5 - 14.5 % 11/08/2024 2:49 PM CREATIVE WRITING ENGLISH PROFESSOR [facility] PLT 180 150 - 350 x10'3/uL 11/08/2024 2:49 PM [facility] MPV 7.7 7.4 - 10.4 FL 11/08/2024 2:49 PM [facility] CBC COMMENT NORMAL REFERENCE RANGE NOT ESTABLISHED FOR THE PROPORTIONAL LEUKOCYTE DIFFERENTIAL. 11/08/2024 2:49 PM CREATIVE WRITING ENGLISH PROFESSOR [facility] NEUTROPHILS % 48.1 % 11/08/2024 2:49 PM CREATIVE WRITING ENGLISH PROFESSOR [facility] LYMPHOCYTES % 42.0 % 11/08/2024 2:49 PM CREATIVE WRITING ENGLISH PROFESSOR [facility] MONOCYTES % 6.7 % 11/08/2024 2:49 PM CREATIVE WRITING ENGLISH PROFESSOR [facility] EOSINOPHILS % 2.1 % 11/08/2024 2:49 PM CREATIVE WRITING ENGLISH PROFESSOR [facility] BASOPHILS % 0.5 % 11/08/2024 2:49 PM CREATIVE WRITING ENGLISH PROFESSOR [facility] IMMATURE GRANS % 0.6 % 11/08/20 2:49 PM CREATIVE WRITING ENGLISH PROFESSOR [facility] NRBC % 0.0 % 11/08/2024 2:49 PM CREATIVE WRITING ENGLISH PROFESSOR [facility] ABS. NEUTROPHILS 4.61 1.60 - 8.30 x10'3/uL 11/08/2024 2:49 PM CREATIVE WRITING ENGLISH PROFESSOR [facility] ABS. LYMPHOCYTES 4.03 0.80 - 4.70 x10'3/uL 11/08/2024 2:49 PM CREATIVE WRITING ENGLISH PROFESSOR [facility] ABS. MONOCYTES 0.64 0.00 - 1.50 x10'3/uL 11/08/2024 2:49 PM CREATIVE WRITING ENGLISH PROFESSOR [facility] ABS. EOSINOPHILS 0.20 0.00 - 0.40 x10'3/uL 11/08/2024 2:49 PM CREATIVE WRITING ENGLISH PROFESSOR [facility] ABS. BASOPHILS 0.05 0.00 - 0.20 x10'3/uL 11/08/2024 2:49 PM CREATIVE WRITING ENGLISH PROFESSOR [facility] ABS. IMMATURE GRANULOCYTES 0.06(H) 0.00 - 0.03 x10'3/uL 11/08/2024 2:49 PM CREATIVE WRITING ENGLISH PROFESSOR [facility] ABS. NUCLEATED RBC'S 0.00 0.00 - 0.01 x10'3/uL 11/08/2024 2:49 PM [facility] 11/08/2024 2:43 PM CREATIVE WRITING ENGLISH PROFESSOR Anuj lAmonte MD LABORATORY Final Result Performing Organization Address City/State/[facility] Co de Phone Number [facility] [place] [address], * THYROXINE, FREE (FT4) (11/08/2024 2:43 PM CREATIVE WRITING ENGLISH PROFESSOR) FREE T4 1.31 0.76 - 1.46 NG/DL 11/08/2024 3:13 PM CREATIVE WRITING ENGLISH PROFESSOR [facility] 11/08/2024 2:43 PM CREATIVE WRITING ENGLISH PROFESSOR Hitesh Birmingham NP LABORATORY Final Resu lt Performing Organization Address [facility] Co de Phone Number [facility] [address] [place] [id number], * THYROID STIM HORMONE TSH (11/08/2024 2:43 PM CREATIVE WRITING ENGLISH PROFESSOR) TSH 2.728 0.358 - 3.740 uIU/ML 11/08/2024 3:13 PM CREATIVE WRITING ENGLISH PROFESSOR [facility] Comment: ASSAY PERFORMED BY CHEMILUMINESCENT IMMUNOASSAY METHODOLOGY USING SIEMENS DIMENSION REAGENT. PATIENT RESULTS DETERMINED BY ASSAYS FROM DIFFERENT MANUFACTURERS AND/OR BY DIFFERENT METHODS MAY NOT BE COMPARABLE. 11/08/2024 2:43 PM CREATIVE WRITING ENGLISH PROFESSOR Hitesh Birmingham NP LABORATORY Final Resu lt Performing Organization Address [facility] Co de Phone Number [facility] [place] [address], * URIC ACID BLOOD (11/08/2024 2:43 PM CREATIVE WRITING ENGLISH PROFESSOR) URIC ACID 3.5 2.6 - 6.0 MG/DL 11/08/2024 3:04 PM CREATIVE WRITING ENGLISH PROFESSOR [facility] 11/08/2024 2:43 PM CREATIVE WRITING ENGLISH PROFESSOR Anuj Almonte MD LABORATORY Final Result Performing Organization Address City/[facility]/ZIP Co de Phone Number [facility] [address] [place] [address], * MG SCREENING W KARY TALISHA DIGI (10/13/2019 10:49 AM CREATIVE WRITING ENGLISH PROFESSOR) Anatomical Region Laterality Modality Breast Bilateral Mammography 10/13/2019 2:17 PM CREATIVE WRITING ENGLISH PROFESSOR Impressions 10/20/2019 2:09 PM CREATIVE WRITING ENGLISH PROFESSOR IMPRESSION: No suspicious change since the previous exams. Recommendation: 1: Routine screening mammogram Bilateral in 1 Year Assessment: ACR BI-RADS Category 2 - Benign. Interpreted By: Harpreet Crump, 10/13/2019 2:17 PM Narrative 10/20/2019 2:09 PM CREATIVE WRITING ENGLISH PROFESSOR Examination: Digital screening mammogram with CAD. Clinical history: Asymptomatic patient presents for routine screening. Comparison: 08/18/2018, 04/11/2017, 01/01/2016, 12/14/2014. Technique: Bilateral digital mammograms. The exam was interpreted with the use of a computer-aided detection (CAD) system. Additional 3-D tomosynthesis images were acquired. Tissue density: The breast tissue contains scattered fibroglandular densities. Findings: The breast tissue contains scattered fibroglandular densities. Benign-appearing calcification noted. No suspicious mass, microcalcification or area of architectural distortion can be identified. From a mammographic standpoint, routine followup in one year would seem adequate. Josuha Law MD MAMMO Final Result from Last 3 Months or Most Recently Relevant to Health Maintenance Insurance MEDICARE AET[employer] Care Teams Fan Blade Truer Relationship Specialty Start Date End Date Joshua Law MD [address] [place] [phone] PCP - General FAMILY PRACTICE 05/28/19
--- OUTSIDE RECORDS SUMMARY | 2025-01-21 12:38 | XMS_ITS | Referral Summary ---
Author Organization 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[facility]) (Primary Dx) 01/07/2025 Orders Only [facility] Bone Marrow Transplant [address] [place] [address] [address] [place] [phone] Aster Shi RN 12/06/2024 10:15 AM HOST Clinical Support [facility] - Lab Collection [facility] Floor [address] [place] [address] 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 Floor [address] [place] [address] Anuj Almonte MD from Last 3 Months Allergies Active Allergy Reactions Criticality Noted Date Comments Chlorhexidine Gluconate Itching,Rash,Redness Medium Medications daSATinib (SPRYCEL) 100 mg tabletIndications: Attala Chromosome Positive ALL Take 1 tablet (100 mg total) by mouth daily Take with or without food at the same time each day. Swallow whole. Do not break, cut, or crush. 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 Swallow whole. Do not break, cut, or crush. 30 tablet 1 5 Active Active Problems Patient Care Coordination No te Formatting of this note is d ifferent from the original. 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 Treatment Plan Blina + Imatinib Clinical Trial [...] SW: PT/OT=SNF Post-Discharge Follow-Up Living Situation/Distance from [facility] STEPHEN Garcia (1 hr) Caregiver Friend-Woo Lab/Transfusion [...] 24 hr bag - Weekend coverage needed D211/25 - Disconnect Miscellaneous Notes: Problem Noted Date Diagnosed Date Rash 10/18/2022 Assessment & Plan (10/18/2022 2:21 PM HOST): Developed around giving as desquamating rash on her inner thighs, [...] 09/02/2022 Assessment & Plan (10/19/2022 9:16 AM HOST): Initially presented on 10/03/2022 for acute bilateral [...] discontinued Assessment & Plan (10/18/2022 2:23 PM HOST): Initially presented on 10/03/2022 for acute bilateral [...] 81mg Assessment & Plan (10/05/2022 8:03 AM HOST): During her hospital stay during July, she was noted to have bilateral exertional calf pain. ERNA's were preformed at that time which showed Rt AT 0.34/PT 0.04 (R toe pressure was immeasurable), and Left ERNA 0.18 (26). CTA show severe multifocal disease with bilateral [...] 07/27/2022 Assessment & Plan (10/04/2022 5:57 AM HOST): TTE 07/2022: LVEF 47% with grade I [...] 07/27/2022 Assessment & Plan (10/19/2022 9:15 AM HOST): Mood is stable, continue home sertraline 25 mg qday Assessment & Plan (10/18/2022 2:19 PM HOST): Mood is stable, continue home sertraline 25 mg qday Assessment & Plan (10/04/2022 6:00 AM HOST): -cont home zoloft Assessment & Plan (07/28/2022 9:56 AM CDT): With anxiety. -restart sertraline, pt off linezolid ALL (acute lymphocytic leukemia) 07/19/2022 Assessment & Plan (10/19/2022 9:15 AM HOST): Follows with Dr. Almonte in BMT and was previously on Ponatinib and Blinatumab, which have been stopped due to rash -BMT continues to follow and are considering Imatinib in the future if her WBC rises -Continue OI prophylaxis with acyclovir, fluconazole, and bactrim -Outpatient BMT follow-up -Blood counts currently stable with Hgb ~8-9 and normal platelets Assessment & Plan (10/18/2022 2:16 PM HOST): Follows with Dr. Almonte in BMT and was previously on Ponatinib and Blinatumab, which have been stopped due to rash -BMT continues to follow and are considering Imatinib in the future if her WBC rises -Continue OI prophylaxis with acyclovir, fluconazole, and bactrim -Outpatient BMT follow-up -Blood counts currently stable with Hgb ~9 and normal platelets Assessment & Plan (10/05/2022 7:56 AM HOST): Patient of Dr. Esparza ([facility] BMT). She is on blinatumomab + ponatinib. 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 Blinatumomab); however not a candidate [...] (08/04/2019): Added automatically from request for surgery [id number] Resolved Problems Problem Noted Date Diagnosed Date Resolved Date ALL (acute lymphoid leukemia ) with failed remission 10/27/2022 03/19/2023 Cellulitis 10/18/2022 10/19/2022 Assessment & Plan (10/19/2022 9:15 AM HOST): Noted to have erythema at her catheter insertion site on 10/11/2022 that appeared different from her desquamating rash on her arms -No overt signs of infection at that time such as fevers, chills -Catheter was removed on 10/14 and s/p Doxycycline 10/11-10/15, s/p vancomycin x1 10/14 -Now resolved Assessment & Plan (10/18/2022 2:19 PM HOST): Noted to have erythema at her catheter insertion site on 10/11/2022 that appeared different from her desquamating rash on her arms -No overt signs of infection at that time such as fevers, chills -Catheter was removed on 10/14 and s/p Doxycycline 10/11-10/15, s/p vancomycin x1 10/14 -Now resolved Acute encephalopathy 10/18/2022 022 Assessment & Plan (10/19/2022 9:15 AM HOST): Secondary to delirium with prolonged hospital stay, [...] today Assessment & Plan (10/18/2022 2:23 PM HOST): Secondary to delirium with prolonged hospital stay, [...] 23 Assessment & Plan (10/19/2022 9:16 AM HOST): RD consult: started MVI daily, s/p vitamin repletion (thiamine 500mg q8h then 100mg x7 days, 1mg folic acid x 5 days, B6 100mg x 5 days) Assessment & Plan (10/18/2022 2:19 PM HOST): RD consult: started MVI daily, s/p vitamin repletion (thiamine 500mg q8h then 100mg x7 days, 1mg folic acid x 5 days, B6 100mg x 5 days) Assessment & Plan (10/04/2022 5:58 AM HOST): 2/2 cancer and chronic diseases -encourage PO [...] 10/18/2022 Assessment & Plan (10/04/2022 6:00 AM HOST): During her hospital stay during July, she [...] PM CDT): - BUN/Cr on presentation was 1.25 , bl Cr was 0.6 on 08/22 [...] does not improve -continue to update family Social History Tobacco Use Types Packs/Day Years Used Date Smoking Tobacco: Former Cigarettes 0.5 40 1 981 - 2020 Smokeless Tobacco: Never Tobacco Cessation:Counseling [...] you are drinking? Patient does not drink 3 Frequency of Binge Drinking Not on file 01/09 Overall Financial Resource Strain (CARDIA) Answe r Date Recorded How hard is it for you to pa y for the very basics like food, housing, medical care, and heating? Not very hard 08/19/2022 PHQ-2 Answer Date Recorded Patient Health Questionnaire-2 Score 0 08/23/2022 [facility] - Occupational Stress [...] place to sleep or slept in a long-term (including now)? No 08/19/2022 Personal Safety Answer Date Recorded Have you ever been in or are you currently in a harmful physical or emotional relationship or is someone making you feel afraid or unsafe? Denies 06/30/2023 Comments No Sex and Gender Information Value Date Recorded Sex Assigned at Not on file Legal Sex Female 9:11 AM HOST Gender Identity Not on file Sexual Orientation Not on file Last Filed Vital Signs Vital Sign Reading Time Taken Comments Blood Pressure 156/74 12/06/2024 10:59 AM HOST Pulse 61 12/06/2024 10:59 AM HOST Temperature 36.9 C (98.4 F) 12/06/2024 10:59 AM HOST Respiratory Rate 20 12/06/2024 10:59 AM HOST Oxygen Saturation 99% 12/06/2024 10:59 AM HOST Inhaled Oxygen Concentration - - Weight 51.9 kg (114 lb 6.4 oz) 12/06/2024 11:12 AM HOST Height 157 cm (5' 1.81 ) 12/06/2024 11:12 AM HOST Body Mass Index 21.05 12/06/2024 11:12 AM HOST Plan of Treatment Not on file Medical Devices Implanted Type Area Transportation Officer Device Identifier Shelf Expiration Date Model / Serial / Lot [employer] Excela Low Porfile Power Port 8fr 1.6mm 1 Lumen [id number] - [id number] Implanted:Qty: 1 on 05/05/2023 at [facility] [employer] 12/29/2027 [id number] / / [id number] Procedures Procedure Name Priority Date/Time Associated Diagnosis Comments DIFFERENTIAL AUTO Routine 12/06/2024 10: 01 AM HOST 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[facility]) CBC WITH AUTO DIFFERENTIAL Routine 12/06/2024 10:01 AM HOST 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[facility]) EGFR Routine 12/06/2024 10:01 AM HOST 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[facility]) BCR/ABL P210 QUANTITATIVE, PCR Routine 12/06/2024 10:01 AM HOST 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[facility]) URIC ACID Routine 12/06/2024 10:01 AM HOST 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[facility]) COMPREHENSIVE METABOLIC PANEL Routine 12/06/2024 10:01 AM HOST 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[facility]) LACTATE DEHYDROGENASE Routine 12/06/2024 10:01 AM HOST 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HCC) MAGNESIUM Routine 12/06/2024 10:01 AM HOST 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HCC) SCAN - LABS 11/08/2024 from Last 3 Months Results * (ABNORMAL) Differential, auto (12/06/2024 10:01 AM HOST) Neutrophil abs 4.7 1.5 - 6.5 K/cumm Comment:Testing performed by : [facility], [address] [place] [address] Lymphocyte abs 4.5(H) 0.8 - 3.3 K/cumm [facility] Comment:Testing performed by : [facility], [address] [place] [phone] Monocyte abs 0.5 0.2 - 0.8 K/cumm [facility] Comment:Testing performed by : [facility], [address] [place] [phone] Eosinophil abs 0.2 0.0 - 0.5 K/cumm [facility] Comment:Testing performed by : [facility], [address] [place] [phone] Basophil abs 0.1 0.0 - 0.1 K/cumm [facility] Comment:Testing performed by : [facility], [address] [place] [phone] Neutrophil pct 46.9 % [facility] Comment: Interpretive Data Percent cell count reference ranges are not reported, since discordance with absolute values may lead to misinterpretation of CBC data. Current Interpretive Data was last revised on 2018. Testing performed by: [facility], [address] [place] [phone] Lymphocyte pct 45.1 % [facility] Comment: Interpretive Data Percent cell count reference ranges are not reported, since discordance with absolute values may lead to misinterpretation of CBC data. Current Interpretive Data was last revised on 2018. Testing performed by: [facility], [address] [place] [phone] Monocyte pct 5.1 % [facility] Comment: Interpretive Data Percent cell count reference ranges are not reported, since discordance with absolute values may lead to misinterpretation of CBC data. Current Interpretive Data was last revised on 2018. Testing performed by: [facility], [address] [place] [address] Eosinophil pct 2.4 % [facility]AGON Comment: Interpretive Data Percent cell count reference ranges are not reported, since discordance with absolute values may lead to misinterpretation of CBC data. Current Interpretive Data was last revised on 2018. Testing performed by: [facility], [address] [place] [address] Basophil pct 0.5 % [facility] MALAGON Comment: Interpretive Data Percent cell count reference ranges are not reported, since discordance with absolute values may lead to misinterpretation of CBC data. Current Interpretive Data was last revised on 2018. Testing performed by: [facility], [address] [place] [phone] Blood 12/06/2024 10:0 1 AM HOST 12/06/2024 10:06 AM HOST us Anuj Almonte MD LAB BLOOD ORDERABLES Final Re sult [facility] One [facility] Department [place] [address] * (ABNORMAL) CBC with auto differential (12/06/2024 10:01 AM HOST) WBC 10.0(H) 3.8 - 9.9 K/cumm Comment:Testing performed by : [facility], [address] [place] [phone] Hgb 12.4 11.9 - 15.5 g/dL [facility] MALAGON Comment:Testing performed by : [facility], [address] [place] [address] Hct 35.7 35.6 - 45.5 % [facility] Comment:Testing performed by : [facility], [address] [place], [place] [phone] Plt 235 150 - 400 K/cumm CERS[facility] Comment:Testing performed by : [facility], [address] [place], [place] [phone] MPV 6.3(L) 6.8 - 10.4 fL [facility] Comment:Testing performed by : [facility], [address] [place], [place] [phone] RBC 3.84(L) 3.90 - 5.20 M/cumm [facility] Comment:Testing performed by : [facility], [address] [place], [place] [phone] MCV 93.1 81.3 - 96.4 fL [facility]ERS[facility] Comment:Testing performed by : [facility], [address] [place], [place] [phone] MCH 32.2 27.1 - 33.3 pg [facility] Comment:Testing performed by : [facility], [address] [place] [address] MCHC 34.6 32.3 - 35.7 g/dL CERSUE [facility] Comment:Testing performed by : [facility], [address] [place] [address] RDW CV 14.2 11.1 - 14.9 % [facility] Comment:Testing performed by : [facility], [address] [place] [address] NRBC abs 0.00 0.00 - 0.01 K/cumm CERSUE [facility] Comment:Testing performed by : [facility], [address] [place], [place] [phone] Blood 12/06/2024 10:0 1 AM HOST 12/06/2024 10:06 AM HOST Anuj Almonte MD LAB BLOOD ORDERABLES Final Re sult MONTE[facility] One [facility] Department [place] [address] * BCR/ABL p210 Quantitative, PCR (12/06/2024 10:01 AM HOST) BCR/ABL p210 Not Detected [facility] BCR/ABL p210 Interpretation Not detected: There is no evidence of a major (p210) BCR::ABL1 fusion transcript by quantitative RT-PCR analysis. [facility] BCR/ABL p210 Specimen Blood [facility] BCR/ABL p210 Result Review Final report reviewed by: Anita Santiago MS, MB([facility]) Recordings Librarian, on 12/07/2024 12:16:23 HOST. [facility] Comment: Interpretive Data A summary of previous BCR::ABL1 major quantitative RT-PCR results for this patient performed in the [facility] Molecular Diagnostics Lab may be found as a cumulative laboratory report in the Results Review section of the Medical Record. Method: The quantitative BCR::ABL1 assay is performed on the [employer] ([employer]) platform. RNA is extracted, converted to cDNA, and BCR::ABL1 and ABL1 cDNA targets are quantified by real-time PCR amplification. Results are reported as the percentage ratio of BCR::ABL1 fusion transcripts to ABL1 transcripts (BCR::ABL1/ABL1) on the International Scale (White HE, 2010). A BCR::ABL1 value of 0.1% on the International Scale represents a major molecular response in CML ([place] S, 2008). The analytical sensitivity of this [...] of response rate between clinical trials. Blood 2008;113:0712-8157. Nilson YOON, Giselle P, Liz P, et al. Establishment of the first World Health Organization International Genetic Reference Panel for quantification of BCR-ABL mRNA. Blood 2010;116:m266-595. [employer] [place] BCR-ABL V2 Package Insert [id number], Rev B (September 2016). Xpert BCR-ABL Monitor, [id number], Rev A, March 2011. This test was performed at: [facility], [facility], [facility]#[id number], Karie Ruth, Ph.D., [place], [address], [place] Current interpretive data was last revised 2023. Blood 12/06/2024 10:0 1 AM HOST 12/06/2024 2:00 PM HOST us Anuj Almonte MD LAB GENETIC TESTING Final Res ult MONTEZ [facility] Department [place] [address] [facility] * eGFR (12/06/2024 10:01 AM HOST) eGFR 83 >=60 mL/min/1. 73 m2 Comment: [...] reviewed 2021. Blood 12/06/2024 10:0 1 AM HOST 12/06/2024 10:14 AM HOST Anuj Almonte MD LAB BLOOD ORDERABLES Final Re sult [facility] Department [place] [address] * Uric acid (12/06/2024 10:01 AM HOST) Uric acid 3.6 2.5 - 7.0 mg/dL Blood 12/06/2024 10:0 1 AM HOST 12/06/2024 10:14 AM HOST Anuj Almonte MD LAB BLOOD ORDERABLES Final Re sult [facility] Department [place] [address] * Magnesium (12/06/2024 10:01 AM HOST) Magnesium 2.2 1.4 - 2.5 mg/dL Blood 12/06/2024 10:0 1 AM HOST 12/06/2024 10:14 AM HOST Anuj Almonte MD LAB BLOOD ORDERABLES Final Re sult Performing Organization Address City/[facility]/ZIP Co de Phone Number [facility] Department [place] [address] * (ABNORMAL) Lactate dehydrogenase (LD) (12/06/2024 10:01 AM HOST) Lactate dehydrogenase (LDH) 251(H) 100 - 250 Units/L Blood 12/06/2024 10:0 1 AM HOST 12/06/2024 10:14 AM HOST Anuj Almonte MD LAB BLOOD ORDERABLES Final Re sult Performing Organization Address [facility] de Phone Number [facility] Department [place] [address] * Comprehensive metabolic panel (12/06/2024 10:01 AM HOST) Pathologist [facility] Sodium 138 135 - 145 mmol/L Potassium, pl 4.3 3.3 - 4.9 mmol/L [facility] Chloride 106 97 - 110 mmol/L [facility] CO2 25 22 - 32 mmol/L [facility] Anion gap 7 2 - 15 mmol/L [facility] BUN 14 6 - 25 mg/dL [facility] Creatinine 0.77 0.60 - 1.10 mg/dL [facility] Glucose 103 70 - 199 mg/dL [facility] Comment: Interpretive Data Fasting glucose >/= 126 [...] classification and Diagnosis of Diabetes Diabetes Care 2021; 46: S19-S40. Current interpretive data was last revised 2022. Calcium 8.9 8.5 - 10.3 mg/dL [facility] Bilirubin, total 0.3 0.1 - 1.2 mg/dL [facility] Protein, pl 6.5 6.5 - 8.5 g/dL [facility] Albumin 4.4 3.5 - 5.0 g/dL CERNER [facility] Alk phos 77 40 - 130 Units/L [facility] ALT 13 7 - 45 Units/L [facility] AST 23 10 - 45 Units/L [facility]ER [facility] Blood 12/06/2024 10:0 1 AM HOST 12/06/2024 10:14 AM HOST Anuj Almonte MD LAB BLOOD ORDERABLES Final Re sult [facility] Organization Address City/State/ZIP Co de Phone Number [facility] One [facility] Department [place] [address] * SCAN - LABS (11/08/2024) us Provider Scanning Edited Result - Final from Last 3 Months Insurance MEDICARE [facility] Address: [address] [address] [place] [address] [facility] MEDICARE [facility] Advance Directives For more information, please contact: [phone] * Full Code (Latest Code Status on [...] 11:08 AM 09/20/2022 2:04 PM Care Teams Farm Crew Member Relationship Specialty Start Date End Date Joshua Law MD [address] [place] [address] PCP - General Family Medicine 08/19/24 Anuj Almonte MD [address] [facility] 8 DIV IM [employer], , [place] [address] Medical Oncologist/Viscose Cellar Worker Medical Oncology 08/19/24
--- OUTSIDE RECORDS SUMMARY | 2025-01-21 12:38 | XMS_ITS | Data Portability ---
Author Organization [facility], [address] [place] [address] ([place]) Address [address] [place] [address] [address] [place] [address] Care Team Providers Care Patrol Agent Name Role Phone ANGI PACKER Primary Care Provider [phone] Assessment Encounter Date Assessment Date Assessment LastModified by Organization Details LastModified Time 07/13/2024 07/13/2024 Ms. Lisa crouch is a pleasant female here today for follow up of Graves' hyperthyroidism and papillary thyroid carcinoma s/p right thyroid lobectomy Note from February 2022 was reviewed. Information was extracted from the previous notes and was verified with the patient. Modifications were made to the previous note when necessary. In August 2019, she had right thyroid lobectomy done at [facility] and pathology revealed papillary thyroid carcinoma 1.8 cm unifocal with no vascular invasion or extension. Approximately 1-1.5 years after the surgery, she was symptomatic with palpitations and was diagnosed with hyperthyroidism. Graves' disease was diagnosed and she started on methimazole in May 2021 We adjusted her methimazole dose and due to persistently elevated TSH levels, we had her completely stop the methimazole in early January 2022. Overall feels well. No tremor. No unintentional weight loss. Denies extreme fatigue She does have some heart racing but at time of her symptoms, she will check her heart rate and it is not elevated and so she thinks the heart racing feeling is due to anxiety. Prior work up: 08/18/2019: Right andrei thyroidectomy done at [facility] Pathology: Papillary thyroid carcinoma, classic type, unifocal; 1.8 cm in greatest dimension; no lymphovascular invasion identified; no extrathyroidal extension; margins are uninvolved; no lymph nodes submitted; pT1bNx stage I 04/10/2021: Thyroid ultrasound (compared to 04/17/2020): FINDINGS: Postsurgical changes of right andrei thyroidectomy are again seen. No evidence of tumor recurrence within the thyroidectomy bed. L EFT: No suspicious thyroid nodules N ormal-appearing lymph nodes are seen within the neck bilaterally I MPRESSION: Stable postoperative appearance of right andrei thyroidectomy without evidence of residual or recurrent disease within the neck. 02/20/2021: TSH <0.005 (0.450-4.500), free T4 2.56 (0.82-1.77), Total T3 222 (71-180) 06/07/21: TSH <0.005 (0.450-4.500), free T3 6.1 (2.0-4.4), free T4 2.66 (0.82-1.77), Thyrotropin Receptor ab 15.40 (0.00-1.75), CBC, AST, and ALT within normal/acceptable range and she believes this is when the methimazole was started 08/01/2021: TSH 0.008 (0.450-4.500) Free T3 3.0 (2.0-4.4), free T4 1.01 (0.82-1.77) and methimazole was increased to 10mg BID 08/28/2021: TSH 1.850 (0.340-5.600), free T3 3.0 (2.6-4.7), free T4 0.52 (0.58-1.64), WBC stable, AST & ALT WNL, ALP slightly elevated and methimazole decreased to 10mg AM, 5mg PM Started on methimazole in May 2021 09/25/2021: Thyroid ultrasound: FINDINGS: The left thyroid lobe measures 4.5 x 2.2 x 2.0 cm, mildly enlarged. Mildly heterogeneous and diffusely hypervascular parenchyma. The right thyroidectomy bed is unremarkable, no focal mass or internal jugular chain lymphadenopathy. Thyroid isthmus measures 1 cm in thickness. IMPRESSION: Enlarged hypervascular left thyroid lobe 12/25/21: TSH 51.80, free T4 0.40 (0.82-1.77) and she was told to stop methimazole 01/07/2022: TSH 43.600 (0.450-4.500), free T4 0.43 (0.82-1.77) and this was when she was still taking methimazole 10mg daily 01/11/2022: called her to go over results and she stopped methimazole completely 01/25/22: TSH 3.516 (0.358-3.740), free T4 0.89 (0.76-1.46), thyroglobulin 247.8, thyroglobulin ab <12 (<40) 02/18/22: TSH 2.334 11/12/2023: TSH 3.650, Thyroglobulin ab <1.0 12/05/23: TSH 3.144, Thyroglobulin 57 : US of thyroid results: Right lobe of thyroid surgically absent. Multiple small left thyroid nodules larges measuring 4mm. TIRADS 4 PRIOR MEDICAL ILLNESSES: Graves' hyperthyroidism Papillary thyroid carcinoma s/p right lobectomy Multinodular thyroid SURGICAL: Right thyroid lobectomy August 2019 Right parathyroidectomy August 2019 Tubal ligation SOCIAL: . Former smoker and quit around 2018. Occasional alcohol intake. She is retired and worked various jobs. 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 Alert and oriented to time, place, and person and is cooperative and in a good mood. HEENT: She has slight chemosis of bilateral eyes with exophthalmos. No lid lag. Stare noted bilaterally. Extraocular muscles are intact. Neck is supple. Trachea is midline. Right thyroid surgically absent. No palpable masses or nodules CARDIOVASCULAR: S1, S2. RRR. No murmurs, rubs, or gallops appreciated. PULMONARY: Nonlabored breathing. Clear to auscultation bilaterally with equal bilateral breath sounds. EXTREMITIES: No cyanosis, or edema of bilateral lower extremities. SKIN: No visible rashes or lesions. Warm to touch. NEUROLOGIC: Cranial nerves 2-12 are grossly intact. No tremors with outstretched hands. Moves extremities without weakness. Steady gait. IMPRESSION AND PLAN: 1. Graves' hyperthyroidism Methimazole use from May 2021-early January 2022. Stay off methimazole due to persistently elevated TSH levels while taking methimazole. TSH and free T4 WNL in mid January 2022 after stopping the methimazole Repeat labs today including TSH and free T4 Will keep in mind TSH goal of 0.5-2.0 given history of Papillary thyroid carcinoma. We reviewed normal thyroid function and risk of reoccurrence of Graves' hyperthyroidism. We discussed treatment options if her hyperthyroidism were to reoccur including restarting antithyroid medications, radioactive iodine ablation, and thyroid surgery. Would likely avoid radioactive iodine due to her potential Graves' eye disease. She will report symptoms of hyperthyroidism reoccurrence. 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 Discussed this could be due to Graves' eye disease. Continue to follow with Dr. Lee for further management of Graves' eye disease. Encouraged her to use eye lubrication like artificial tears and to avoid eye irritants like smoke and chemicals 3. Papillary thyroid carcinoma Papillary thyroid carcinoma 1.8 cm unifocal with no vascular invasion or extension s/p right thyroid lobectomy in August 2019. September 2021 thyroid ultrasound showed unremarkable right thyroidectomy bed . January 2024 describes unremarkable thyroid bed, left thyroid 4mm nodules TR4. Low risk of reoccurrence Want to maintain the TSH of 0.5 to 2.0. TSH 3.144 in January 2024. Will repeat TSH and Free T4. If TSH >2.0 will plan to start low dose levothyroxine 25 mcg unless labs reveal recurrence of Grave's disease. She will need a thyroid ultrasound with comparison to prior after 1 year which will be due in January 2025. Follow up in [address] Pardo ho Not available 07/13/2024 10:31:54 01/17/2025 01/17/2025 Ms. Lisa crouch is a pleasant female here today for follow up of Graves' hyperthyroidism and papillary thyroid carcinoma s/p right thyroid lobectomy Note from February 2022 was reviewed. Information was extracted from the previous notes and was verified with the patient. Modifications were made to the previous note when necessary. In August 2019, she had right thyroid lobectomy done at [facility] and pathology revealed papillary thyroid carcinoma 1.8 cm unifocal with no vascular invasion or extension. Approximately 1-1.5 years after the surgery, she was symptomatic with palpitations and was diagnosed with hyperthyroidism. Graves' disease was diagnosed and she started on methimazole in May 2021 We adjusted her methimazole dose and due to persistently elevated TSH levels, we had her completely stop the methimazole in early January 2022. Overall feels well. No tremor. No unintentional weight loss. Denies extreme fatigue She does have some heart racing but at time of her symptoms, she will check her heart rate and it is not elevated and so she thinks the heart racing feeling is due to anxiety. Prior work up: 08/18/2019: Right andrei thyroidectomy done at [facility] Pathology: Papillary thyroid carcinoma, classic type, unifocal; 1.8 cm in greatest dimension; no lymphovascular invasion identified; no extrathyroidal extension; margins are uninvolved; no lymph nodes submitted; pT1bNx stage I 04/10/2021: Thyroid ultrasound (compared to 04/17/2020): FINDINGS: Postsurgical changes of right andrei thyroidectomy are again seen. No evidence of tumor recurrence within the thyroidectomy bed. L EFT: No suspicious thyroid nodules N ormal-appearing lymph nodes are seen within the neck bilaterally I MPRESSION: Stable postoperative appearance of right andrei thyroidectomy without evidence of residual or recurrent disease within the neck. 02/20/2021: TSH <0.005 (0.450-4.500), free T4 2.56 (0.82-1.77), Total T3 222 (71-180) 06/07/21: TSH <0.005 (0.450-4.500), free T3 6.1 (2.0-4.4), free T4 2.66 (0.82-1.77), Thyrotropin Receptor ab 15.40 (0.00-1.75), CBC, AST, and ALT within normal/acceptable range and she believes this is when the methimazole was started 08/01/2021: TSH 0.008 (0.450-4.500) Free T3 3.0 (2.0-4.4), free T4 1.01 (0.82-1.77) and methimazole was increased to 10mg BID 08/28/2021: TSH 1.850 (0.340-5.600), free T3 3.0 (2.6-4.7), free T4 0.52 (0.58-1.64), WBC stable, AST & ALT WNL, ALP slightly elevated and methimazole decreased to 10mg AM, 5mg PM Started on methimazole in May 2021 09/25/2021: Thyroid ultrasound: FINDINGS: The left thyroid lobe measures 4.5 x 2.2 x 2.0 cm, mildly enlarged. Mildly heterogeneous and diffusely hypervascular parenchyma. The right thyroidectomy bed is unremarkable, no focal mass or internal jugular chain lymphadenopathy. Thyroid isthmus measures 1 cm in thickness. IMPRESSION: Enlarged hypervascular left thyroid lobe 12/25/21: TSH 51.80, free T4 0.40 (0.82-1.77) and she was told to stop methimazole 01/07/2022: TSH 43.600 (0.450-4.500), free T4 0.43 (0.82-1.77) and this was when she was still taking methimazole 10mg daily 01/11/2022: called her to go over results and she stopped methimazole completely 01/25/22: TSH 3.516 (0.358-3.740), free T4 0.89 (0.76-1.46), thyroglobulin 247.8, thyroglobulin ab <12 (<40) 02/18/22: TSH 2.334 11/12/2023: TSH 3.650, Thyroglobulin ab <1.0 12/05/23: TSH 3.144, Thyroglobulin 57 : US of thyroid results: Right lobe of thyroid surgically absent. Multiple small left thyroid nodules larges measuring 4mm. TIRADS 4 08/09/2024: tsh 4.399, Free T4 1.40 - started Levothyroxine 25 mcg 11/08/2024: TSH2.728, Free t4 1.31 - Increased levothyroxine to 37 mcg daily 11/29/2024: Patient reduced dose to 25 mcg due to gastrointestinal symptoms she associated with levothyroxine. PRIOR MEDICAL ILLNESSES: Graves' hyperthyroidism Papillary thyroid carcinoma s/p right lobectomy Multinodular thyroid SURGICAL: Right thyroid lobectomy August 2019 Right parathyroidectomy August 2019 Tubal ligation SOCIAL: . Former smoker and quit around 2019. Occasional alcohol intake. She is retired and worked various jobs. 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 Alert and oriented to time, place, and person and is cooperative and in a good mood. HEENT: She has slight chemosis of bilateral eyes with exophthalmos. No lid lag. Stare noted bilaterally. Extraocular muscles are intact. Neck is supple. Trachea is midline. Right thyroid surgically absent. No palpable masses or nodules CARDIOVASCULAR: S1, S2. RRR. No murmurs, rubs, or gallops appreciated. PULMONARY: Nonlabored breathing. Clear to auscultation bilaterally with equal bilateral breath sounds. EXTREMITIES: No cyanosis, or edema of bilateral lower extremities. SKIN: No visible rashes or lesions. Warm to touch. NEUROLOGIC: Cranial nerves 2-12 are grossly intact. No tremors with outstretched hands. Moves extremities without weakness. Steady gait. IMPRESSION AND PLAN: 1. Graves' hyperthyroidism Methimazole use from May 2021-early January 2022. Stay off methimazole due to persistently elevated TSH levels while taking methimazole. TSH and free T4 WNL in mid January 2022 after stopping the methimazole Repeat labs today including TSH and free T4 Will keep in mind TSH goal of 0.5-2.0 given history of Papillary thyroid carcinoma. We reviewed normal thyroid function and risk of reoccurrence of Graves' hyperthyroidism. We discussed treatment options if her hyperthyroidism were to reoccur including restarting antithyroid medications, radioactive iodine ablation, and thyroid surgery. Would likely avoid radioactive iodine due to her potential Graves' eye disease. She will report symptoms of hyperthyroidism reoccurrence. 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 Discussed this could be due to Graves' eye disease. Continue to follow with Dr. Lee for further management of Graves' eye disease. Encouraged her to use eye lubrication like artificial tears and to avoid eye irritants like smoke and chemicals 3. Papillary thyroid carcinoma Papillary thyroid carcinoma 1.8 cm unifocal with no vascular invasion or extension s/p right thyroid lobectomy in August 2019. September 2021 thyroid ultrasound showed unremarkable right thyroidectomy bed . January 2024 describes unremarkable thyroid bed, left thyroid 4mm nodules TR4. Low risk of re-occurrence Want to maintain the TSH of 0.5 to 2.0. TSH 3.144 in January 2024. Will repeat TSH and Free T4. If TSH >2.0. Since she is having gastrointestinal symptoms with levothyroxine will switch to tirosint 37.5 mcg daily. She will need a thyroid ultrasound with comparison to prior after 1 year which will be due in January 2025. TSH and free t4 in 6 weeks Will also check thyroglobulin quant Follow up in 6 month. ho Not available 01/17/2025 12:23:47 Plan of Treatment Reminders Order Date Submit Date Provider Last Modified By Organization Details Last Modified Time Details Appointments Establish ed Patient 15.EST 2024 10:30A M Hitesh Birmingham Not available Not available Not available Lab tsi (thyroid- stimulati ng immunoglo bulin), serum 2024 025 [facility], [address] [place] [address], [id number], 01/17/2025 12:22:18 thyrotrop in receptor Ab, serum 2024 025 [facility], [address] [place] [address], [id number], 01/17/2025 12:22:18 TSH, ultra-sen sitive, serum 2024 025 [facility], [address] [place] [address], [id number], 01/17/2025 12:22:18 T4, free, serum 2024 025 [facility], [address] [place] [address], [id number], 01/17/2025 12:22:17 tsi (thyroid- stimulati ng immunoglo bulin), serum 2023 [facility] Only [facility], [address] [place] [address], [id number], 07/16/2024 06:42:48 thyrotrop in receptor Ab, serum 2023 [facility], [address] [place] [address], [id number], 07/16/2024 03:44:21 TSH, ultra-sen sitive, serum 2023 [facility], [address] [place] [address], [id number], 07/13/2024 17:38:24 T4, free, serum 2023 [facility], [address] [place] [address], [id number], 07/13/2024 17:38:22 Referral None recorded. Procedures None recorded. Surgeries None recorded. Imaging None recorded. Medication Orders Tirosint 37.5 mcg capsule 2024 025 ho [facility] [place], [id number], 01/18/2025 08:59:06 Patient TargetsNo targets recorded. Patient Instructions Encounter Date Encounter Id Patient Instructions Last Modified By Organization Details Last Modified Time 07/13/2024 [id number] hyperthyroidism: care instructions ho Not available 07/13/2024 10:23:31 Reason for Referral None Reported. Results Created Date Observation Date Name Description Value Unit Range Abnormal Flag Note LastModifiedBy Organization Detail LastModifiedTime 07/13/20 24 07/13/2024 T4, free, serum free T4 1.40 NG/dL 0.58-1 .64 Speci mens that conta in high level s of bioti n may cause false ly high Free T4 resul ts. 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 immunog. <0.10 IU/L 0.00-0 .55 Not Available [facility] [address] [place] [address], [id number], 07/16/2024 06:42:48 Result Notes None recorded. Problems Name Problem SNOMED Code Status Onset Date Resolution Date Notes Provider Name and Address Organization Details Recorded Time Hyperthyroidis m 58666010 Active 2023 [facility] 4 15:24:45 Papillary thyroid carcinoma 178648329 Active 2023 [facility] 4 15:24:58 Exophthalmos 86352283 Active 2023 [facility] 4 15:25:18 Graves' disease 305321490 [facility] 2023 [facility] 4 15:25:27 Problem Notes None recorded. Medical Equipment None Reported. Medications Name Sig Start Date Stop Date Status Note LastModified by Organization Details LastModified Time cyclobenzapr ine 10 mg tablet 07/13 completed Not Available Not Available Not Available ondansetron HCl 4 mg tablet Take by oral route as needed. active Not Available Not Available No t Available acyclovir 400 mg tablet 07/13 completed Not Available Not Available Not Available levothyroxin e 75 mcg tablet Take 0.5 tablets every day by oral route in the morning for 30 days. 11/29 completed Not Available Not Available Not Available Synthroid 25 mcg tablet TAKE 1 AND 1/2 TABLET BY MOUTH EVERY MORNING. 2024 active Not Available Not Available Not Avai lable gabapentin 300 mg capsule Take as needed by oral route. active Not Available Not Available No t Available sertraline 25 mg tablet 07/13 completed Not Available Not Available Not Available metoprolol succinate ER 25 mg tablet,exten ded release 24 hr Take 1 tablet every day by oral route in the evening. active Not Available Not Available No t Available Sprycel 100 mg tablet Take 1 tablet every day by oral route in the evening. active Not Available Not Available No t Available Tirosint 37.5 mcg capsule Take 1 capsule every day by oral route for 30 days. 2024 active Not Available Not Available Not Avai lable Vitals Date Recorded Body weight Heart rate Oxygen saturation Oxygen saturation in Arterial blood by Pulse oximetry Systolic blood pressure Diastolic blood pressure Provider Name and Address Organization Details Last Updated DateTime 4 60550.6 9 g 64 /min 98 % 98 % 136 mm[Hg] 74 mm[Hg] [facility] 4 10:17:38 Date Recorded Body weight Heart rate Oxygen saturation Oxygen saturation in Arterial blood by Pulse oximetry Systolic blood pressure Diastolic blood pressure Provider Name and Address Organization Details Last Updated DateTime 5 82977.4 3 g 76 /min 95 % 95 % 132 mm[Hg] 68 mm[Hg] [facility] 5 12:08:46 Social History None recorded. Functional Status None recorded. Mental Status None recorded. Family History Nothing Reported. Medical History No medical history recorded. Gynecological HistoryNo gynecological history recorded. Obstetrics History GPAL:G 0 P 0 0 0 0 Past Encounters Encounter ID Performer Location Encounter Start Date Encounter Closed Date Diagnosis/Indication Diagnosis SNOMED-CT Code Diagnosis ICD10 Code Diagnosis Note [id number] Hitesh Birmingham, [employer] SALES REPRESENTATIVE [facility] ([place]) [address] [place] [address] 07/13/2024 10:07:54 07/13/2024 10:26:24 Hyperthyroidism 77753791 E05.90 Papillary thyroid carcinoma 066507575 C73 Exophthalmos 43704993 H0 5.20 Graves' disease 57096837 4 E05.00 [id number] Hitesh Birmingham, [employer] SALES REPRESENTATIVE [facility] ([place]) [address] [place] [address] 01/17/2025 12:02:03 01/17/2025 12:28:05 Hyperthyroidism 43360043 E05.90 Papillary thyroid carcinoma 884006348 C73 Exophthalmos 92930419 H0 5.20 Graves' disease 63674462 4 E05.00 Health Concerns Section Related Observation LastModified by Organization Detai ls LastModified Time None Recorded Concern Status LastModified by Organization Details LastModified Time None Recorded Advance Directives Directive None Recorded Payers Encounter Date Sequence Insurance Name Policy Number Policy Dye Covered Member ID Dye Member ID Guarantor Name 07/13/2024 1 [place] Lisa Ellington [id number] Lisa Ellington 01/17/2025 1 [place] Lisa Ellington [id number] Lisa Ellington 01/17/2025 2 [place] [employer] Lisa Ellington [id number] Lisa Ellington OBGyn Episode No OBEpisode recorded.
--- OUTSIDE RECORDS SUMMARY | 2025-01-21 12:38 | XMS_ITS ---
Author Organization [facility] Main [facility] s Address [address] [place] [address] Care Team Providers Care Formula Room Worker Name Role Phone Joshua Law MD Primary Care Provider [phone] Anuj Almonte MD Unavailable [phone] Active Problems Patient Care Coordination No te [...] SW: PT/OT=SNF [facility] [place] [facility] Caregiver Friend-Woo Lab/Transfusion Frequency Patient says she can do labs with PCP Venous Access & Care PICC Exchange PICC for Jackie after C2 Blina? Local Oncologist Contact Post-Discharge Office Visit (H30) GLU D3 10/30 - 7 day bag D10 11/06 - 7 day bag D17 11/13 - 7 day bag D24 /11 - 48 hr bag D26 13 - 48 hr bag D28 15 - 24 hr bag - Weekend coverage needed D211/25 - Disconnect Miscellaneous Notes: Problem Noted Date Diagnosed Date Rash 10/18/2022 Assessment & Plan (10/18/2022 2:21 PM SAUSAGE INSPECTOR): Developed around as desquamating rash on her inner thighs, [...] patient Acute lymphocytic leukemia in remission 09/13/20 Hyponatremia 09/03/2022 Assessment & Plan (09/03/2022 3:36 PM CDT): - Na-130, serum OSM-268, UOsm-189, Julianne- <20, FeNa was les sthen 1 % - Pt's looks clinically dehydrated on exam - Will c/w NS @ 100 ml/hr - Monitor I/O strictly, f/u BMP PAD (peripheral artery disease) 09/02/2022 Assessment & Plan (10/19/2022 9:16 AM SAUSAGE INSPECTOR): Initially presented on 10/03/2022 for acute bilateral [...] discontinued Assessment & Plan (10/18/2022 2:23 PM SAUSAGE INSPECTOR): Initially presented on 10/03/2022 for acute bilateral [...] 81mg Assessment & Plan (10/05/2022 8:03 AM SAUSAGE INSPECTOR): During her hospital stay during July, she [...] 07/27/2022 Assessment & Plan (10/04/2022 5:57 AM SAUSAGE INSPECTOR): TTE 07/2022: LVEF 47% with grade I [...] 07/27/2022 Assessment & Plan (10/19/2022 9:15 AM SAUSAGE INSPECTOR): Mood is stable, continue home sertraline 25 mg qday Assessment & Plan (10/18/2022 2:19 PM SAUSAGE INSPECTOR): Mood is stable, continue home sertraline 25 mg qday Assessment & Plan (10/04/2022 6:00 AM SAUSAGE INSPECTOR): -cont home zoloft Assessment & Plan (07/28/2022 9:56 AM CDT): With anxiety. -restart sertraline, pt off linezolid ALL (acute lymphocytic leukemia) 07/19/2022 Assessment & Plan (10/19/2022 9:15 AM SAUSAGE INSPECTOR): Follows with Dr. Almonte in B[facility] and was previously on Ponatinib and Blinatumab, which have been stopped due to rash -BMT continues to follow and are considering Imatinib in the future if her WBC rises -Continue OI prophylaxis with acyclovir, fluconazole, and bactrim -Outpatient BMT follow-up -Blood counts currently stable with Hgb ~8-9 and normal platelets Assessment & Plan (10/18/2022 2:16 PM SAUSAGE INSPECTOR): Follows with Dr. Almonte in BMT and was previously on Ponatinib and Blinatumab, which have been stopped due to rash -BMT continues to follow and are considering Imatinib in the future if her WBC rises -Continue OI prophylaxis with acyclovir, fluconazole, and bactrim -Outpatient BMT follow-up -Blood counts currently stable with Hgb ~9 and normal platelets Assessment & Plan (10/05/2022 7:56 AM SAUSAGE INSPECTOR): Patient of Dr. Esparza ([facility] B[facility]). She is on blinatumomab + ponatinib. 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 Blinatumomab); however not a candidate [...] (08/04/2019): Added automatically from request for surgery [id number] Current Treatment and Therapy Plans ALTEPLASE (CATHFLO ACTIVASE) - ORDERS FOR OCCLUDED CATHETERS* Plan Start Date: 09/30/2022 Plan Provider:Anuj Almonte MD Linked Problems Acute lymphocytic leukemia i n remission (HCC) Treatment Medications No medications scheduled. COVID-19 - BMT (CMV POSITIVE) ADULT BLOOD AND PLATELET ADMINISTRATION FOR INPATIENT* Plan Start Date:10/08/2022 Plan Provider:Surjit Rubi MD Linked Problems Acute lymphoblastic leukemia (ALL) not having achieved remission (HCC)Acute lymphocytic leukemia in remission (HCC) Treatment Medications No medications scheduled. Dasatinib Daily - ALL* Plan Start Date:06/16/2023 Plan Provider:Anuj Almonte MD Linked Problems 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HCC) Treatment Medications Current Day (Day 1 , Cycle 5 - Planned for 03/07/2025) Next Day (Day 1, Cycle 6 - Planned for 05/30/2025) daSATinib (SPRYCEL) daSATinib (SPRYCEL) 100 mg tablet No medications scheduled. HYDRATION THERAPY PLAN* Plan Start Date:09/02/2022 Plan Provider:Anuj Almonte MD Linked Problems 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HCC) Treatment Medications No medications scheduled. Past Treatment and Therapy Plans BMT/ONC IP BLOOD PRODUCTS Plan Name Start Date Discontinue Date Treatment Medications Discontinue Reason Plan Provider COVID-19 - BMT (CMV NEGATIVE/UNTESTED) ADULT BLOOD AND PLATELET ADMINISTRATION FOR INPATIENT 07/13/2022 09/20/2022 No medications scheduled. Patient Discharged Elder Flood MD Oncology Chemotherapy Treatment Plan Name Start Date Discontinue Date Treatment Medications Discontinue Reason Plan Provider Cycles Intrathecal Methotrexate 2 07/23/2023 cytarabine-hyd rocortisone intrathecalmet hotrexate-hydr ocortisone (PF) intrathecal Therapy Complete Anuj Almonte MD 7 of 7 cycles started [id number] Off-Study Course I INPT - ALL 07/19/2022 07/30/2022 daSATinib (SPRYCEL)metho trexate-hydroc ortisone (PF) intrathecal Toxicity/Compl ication Frieda Vegas MD 1 of 1 cycle started Oncology Treatment (2) Plan Name Start Date Discontinue Date Treatment Medications Discontinue Reason Plan Provider Cycles Blinatumomab + Ponatinib/imati nib for Ph+ ALL 2 06/02/2023 blinatumomab (BLINCYTO)blina tumomab (BLINCYTO) infusion 210 mcg in NS (for 196 mcg dose)blinatumom ab (BLINCYTO) infusion 32.5 mcg in NS (for 28 mcg dose)blinatumom ab (BLINCYTO) infusion 65 mcg in NS (for 56 mcg dose)imatinib (GLEEVEC)PONATi nib (ICLUSIG) Therapy Complete Uy, Anuj Beatty MD 5 of 5 cycles started Lifetime Dose Tracking * Chemical Lifetime Dose Automatic Entry Manual Entr y Fluoro Time 2.3 minutes 2.3 minutes 0 minutes Air kerma at the reference point (Ka,r) 28 mGy 2 8 mGy 0 mGy DLP 2,710 mGycm 2,710 mGycm 0 mGycm Resolved Problems Problem Noted Date Diagnosed Date Resolved Date ALL (acute lymphoid leukemia ) with failed remission 10/27/2022 03/19/2023 Cellulitis 10/18/2022 10/19/2022 Assessment & Plan (10/19/2022 9:15 AM SAUSAGE INSPECTOR): Noted to have erythema at her catheter insertion site on 10/11/2022 that appeared different from her desquamating rash on her arms -No overt signs of infection at that time such as fevers, chills -Catheter was removed on 10/14 and s/p Doxycycline 10/11-10/15, s/p vancomycin x1 10/14 -Now resolved Assessment & Plan (10/18/2022 2:19 PM SAUSAGE INSPECTOR): Noted to have erythema at her catheter insertion site on 10/11/2022 that appeared different from her desquamating rash on her arms -No overt signs of infection at that time such as fevers, chills -Catheter was removed on 10/14 and s/p Doxycycline 10/11-10/15, s/p vancomycin x1 10/14 -Now resolved Acute encephalopathy 10/18/2022 022 Assessment & Plan (10/19/2022 9:15 AM SAUSAGE INSPECTOR): Secondary to delirium with prolonged hospital stay, [...] today Assessment & Plan (10/18/2022 2:23 PM SAUSAGE INSPECTOR): Secondary to delirium with prolonged hospital stay, [...] 23 Assessment & Plan (10/19/2022 9:16 AM SAUSAGE INSPECTOR): RD consult: started MVI daily, s/p vitamin repletion (thiamine 500mg q8h then 100mg x7 days, 1mg folic acid x 5 days, B6 100mg x 5 days) Assessment & Plan (10/18/2022 2:19 PM SAUSAGE INSPECTOR): RD consult: started MVI daily, s/p vitamin repletion (thiamine 500mg q8h then 100mg x7 days, 1mg folic acid x 5 days, B6 100mg x 5 days) Assessment & Plan (10/04/2022 5:58 AM SAUSAGE INSPECTOR): 2/2 cancer and chronic diseases -encourage PO [...] 10/18/2022 Assessment & Plan (10/04/2022 6:00 AM SAUSAGE INSPECTOR): During her hospital stay during July, she [...]
== END 2025-01-21 12:28 | disposition home or self-care (01) ==
PROVIDERS: PCP Family Medicine
DX: C73 Malignant neoplasm of thyroid gland (principal); E89.0 Postprocedural hypothyroidism
CPT/HCPCS: 76536